=== PATIENT | male | born 1960 | race Caucasian/White ===

== ENCOUNTER 2020-06-19 08:47 | Day surgery (SDC) | payer MEDICARE, OTHER ==
[2020-06-18 10:49] VITALS: BMI 42.3
[2020-06-19] MEDS ORDERED: LACTATED RINGERS 1,000 ML IV ONE (09:25)
[2020-06-19 09:29] VITALS: TEMP 98.7
[2020-06-19] MEDS ORDERED: PROPOFOL 10 MG/ML 20 ML VIAL IV ONE (09:56)
[2020-06-19] MEDS ORDERED: fentaNYL (PF) 50 MCG/ML 2 ML AMP ONE (09:56)
--- NOTE | 2020-06-19 10:24 | P.PCN ---
Date of Procedure: 06/19/20 Description of Procedure: BRIEF HISTORY: Patient is a 59-year-old male presenting for outpatient colonoscopy for evaluation of hemorrhage of the anus and rectum. The patient reports last colonoscopy 4 years ago. He reports intermittent blood per rectum over the past few years. Family history of colon cancer in his father. He denies any abdominal pain. PROCEDURE PERFORMED: Colonoscopy with polypectomy. PREOPERATIVE DIAGNOSIS: Hemorrhage of the anus and rectum, last colonoscopy 4 years ago, family history of colon cancer in his father. ESTIMATED BLOOD LOSS: Minimal. IV sedation per Anesthesia. PROCEDURE: After informed consent was obtained, the patient, was brought into the endoscopy unit. IV sedation was administered by Anesthesia under continuous monitoring. Digital rectal examination was normal. Initially the Olympus CF-190 flexible video colonoscope was then inserted in the rectum, gradually advanced into the cecum without any difficulty. Careful examination was performed as the scope was gradually being withdrawn. Ileocecal valve and the appendiceal orifice were visualized and appeared normal. Prep was excellent. Mucosa of the cecum, ascending colon, transverse colon, descending colon, sigmoid colon, and rectum appeared normal, With a few scattered diverticula noted in the sigmoid colon. 2 diminutive polyps removed from the rectum with cold forcep polypectomy. A flat 4 mm sigmoid polyp removed with cold snare polypectomy. Retroflexion was performed in the rectum and no lesions were seen, And low-grade internal hemorrhoids noted. The patient tolerated the procedure well. IMPRESSION: Flat sigmoid polyp removed with cold snare polypectomy. 2 diminutive rectal polyps removed with cold forceps polypectomy. Mild sigmoid diverticulosis. Internal hemorrhoids. RECOMMENDATIONS: Findings of this examination were discussed with the patient and his family. Okay to resume diet. Okay to resume medications. Await pathology from polypectomy. Recommend local hemorrhoidal care for rectal bleeding including warm baths, Tucks pads, stool softeners and local topical steroid therapy with Preparation H. Recommend repeat colonoscopy in 5 years for family history of colon cancer and personal history of colon polyps.
[2020-06-19 10:55] VITALS: BP 120/67; PULSE 84; RESP 20
== END 2020-06-19 11:12 | disposition home or self-care (01) ==
LOC: ORWHC2ENDO 08:47
PROVIDERS: ATTEND Internal Medicine
DX: K62.1 Rectal polyp (principal); K63.5 Polyp of colon; K64.8 Other hemorrhoids; K57.30 Diverticulosis of large intestine without perforation or abscess without bleeding; K62.5 Hemorrhage of anus and rectum; E78.5 Hyperlipidemia, unspecified; I10 Essential (primary) hypertension; J44.9 Chronic obstructive pulmonary disease, unspecified; Z79.899 Other long term (current) drug therapy; Z80.0 Family history of malignant neoplasm of digestive organs; Z88.8 Allergy status to other drugs, medicaments and biological substances
CPT/HCPCS: 88305; 45380; 45385; J3010; J2704

== ENCOUNTER → 2020-07-08 | Outpatient (CLI) | payer OTHER ==
--- NOTE | 2020-07-08 18:42 | MR ---
EXAMINATION TYPE: MR thoracic spine wo con DATE OF EXAM: 07/08/2020 COMPARISON: HISTORY: Chronic mid back pain. CONTRAST: Performed utilizing mL intravenous gadolinium contrast. TECHNIQUE: Multiplanar, multiecho imaging on a 3.0 Sally magnet is performed through the thoracic spi ne. Spinal cord maintains normal signal through its visualized course. T5-T6: There is right paracentral endplate changes with mild anterior thecal sac flattening. Cord con tact is present with minimal right paracentral cord flattening. No spinal canal stenosis is present. T7-8: Some mild right paracentral endplate change may have some anterior thecal sac compression. No s carlos canal stenosis is evident. Vertebral body alignment is normal. Vertebral body heights are preserved. Disc heights are preserved. Disc hydration levels are preserved. No spinal canal stenosis is evident. Note is made of disc bulging T5-6 and T6-7 with mild to moderate anterior thecal sac compression IMPRESSIONS: 1. T5-6 and T7-8 right paracentral endplate changes with mild anterior thecal sac flattening. At T5-6 some minimal cord flattening may be present. No spinal canal stenosis present. 2. Note is made of disc bulging present at C5-6 and C6-7 levels.
== END | disposition home or self-care (01) ==
LOC: RADMRIMAIN 15:40
PROVIDERS: ATTEND Physician Assistant
DX: M54.6 Pain in thoracic spine (principal); M50.222 Other cervical disc displacement at C5-C6 level
CPT/HCPCS: 72146

== ENCOUNTER → 2020-09-12 | Outpatient (CLI) | payer OTHER ==
--- NOTE | 2020-09-13 03:37 | MR ---
EXAMINATION TYPE: MR lumbar spine wo con DATE OF EXAM: 09/12/2020 COMPARISON: None HISTORY: Low back pain that goes down both legs for 20 years. History of surgery in 1989,1994,2001, a nd 2003. Multiplanar multiecho imaging of the lumbar spine without contrast. Lumbar vertebra have normal alignment. There is disc space narrowing at L4-5 and L5-S1. There is prev ious laminectomy at L5 on the left side. The sacroiliac joints are intact. There is no compression fr acture. The lumbar nerve roots appear fairly normal. There is no spinal stenosis. I see no significan t neural foraminal narrowing. I see no focal bone destruction. The sacroiliac joints are intact. IMPRESSION: Previous surgery in the lower lumbar spine. No spinal stenosis or lumbar disc herniation. No fracture .
== END | disposition home or self-care (01) ==
LOC: RADMRIMAIN 19:14
PROVIDERS: ATTEND Physician Assistant
DX: M48.061 Spinal stenosis, lumbar region without neurogenic claudication (principal); Z98.890 Other specified postprocedural states
CPT/HCPCS: 72148

== ENCOUNTER → 2020-11-25 | Outpatient (CLI) | payer OTHER ==
--- NOTE | 2020-11-25 11:27 | XR ---
EXAMINATION TYPE: XR cervical spine limited DATE OF EXAM: 11/25/2020 COMPARISON: NONE HISTORY: Pain TECHNIQUE: Four views are submitted. FINDINGS: The odontoid is intact. There are no compression deformities. The prevertebral soft tissue structur es are within normal limits. Calcifications of the neck likely related to the carotid arteries. Hype rtrophic and degenerative changes C5-6 and C6-C7. IMPRESSION: 1. Hypertrophic and degenerative change C5-6 and C6-C7.
--- NOTE | 2020-11-25 14:29 | MR ---
EXAMINATION TYPE: MR cervical spine wo con DATE OF EXAM: 11/25/2020 COMPARISON: None HISTORY: 60-year-old male Neck pain and headaches. Numbness/Tingling in Right arm and hand X1 year TECHNIQUE: Multiplanar, multisequence images of the cervical spine were acquired without contrast. FINDINGS: No craniocervical junction abnormality, predental space widening, or prevertebral soft tissue swellin g. Preserved alignment of the cervical spine. Moderate degenerative disc disease at C6/C7 with associated fatty Modic type II endplate changes. Mil d disc space narrowing, disc desiccation, disc osteophyte complex. Additional levels of disc osteophy te complex or disc bulging along with disc desiccation is present throughout the cervical spine. Multilevel facet and uncovertebral joint arthropathy. There is a component of mild congenital spinal canal stenosis throughout the cervical spine. At C2-C3, no significant canal or foraminal stenosis. At C3-C4, posterior disc bulge with a left-sided facet and uncovertebral joint arthropathy. Mild left neuroforaminal narrowing. Slight accentuation in the mild spinal canal stenosis. At C4-C5, disc bulge with superimposed central disc protrusion. Uncovertebral joint and facet arthrop athy. Moderate left and mild right neuroforaminal stenosis. Mild overall spinal canal stenosis with a butment and slight flattening of the ventral cord. At C5-C6, broad-based disc osteophyte complex with superimposed central disc protrusion. Mild to mode rate overall spinal canal stenosis with flattening of the ventral cord. Hypertrophic facet and uncal vertebral joint arthropathy. Changes result in a moderate to severe right neuroforaminal stenosis and moderate left neuroforaminal stenosis. At C6-C7, broad-based disc osteophyte complex with uncovertebral joint and facet arthropathy. Mild to moderate overall final canal stenosis with abutment and flattening of the ventral cord. Severe right and moderate to severe left neuroforaminal stenosis. At C7-T1, facet arthropathy. No significant canal or foraminal stenosis. Normal course and signal intensity of the cervical spinal cord. IMPRESSION: 1. Ymis-nd-cargsgck degenerative disc disease, greatest at C6/C7. Changes are superimposed on a mild congenital spinal canal stenosis. 2. Disc osteophyte complexes at both C5-C6 and C6-C7 contribute to a mild to moderate overall spinal canal stenosis. There is abutment and slight flattening of the ventral cord at both of these levels. No myelopathic cord signal change identified. 3. Additional scattered facet and uncovertebral joint arthropathy. 4. Changes results in severe right neuroforaminal stenosis at C6-C7 and moderate to severe on the rig ht at C5-C6. 5. Changes result in moderate to severe left neuroforaminal stenosis at C6-C7 and moderate on the lef t at both C4-C5 and C5-C6.
== END | disposition home or self-care (01) ==
LOC: RADMRIMAIN 10:50
PROVIDERS: ATTEND Neurological Surgery
DX: M50.323 Other cervical disc degeneration at C6-C7 level (principal); M47.812 Spondylosis without myelopathy or radiculopathy, cervical region; M48.02 Spinal stenosis, cervical region
CPT/HCPCS: 72040; 72141

== ENCOUNTER → 2020-11-25 | Outpatient (CLI) | payer OTHER ==
--- NOTE | 2020-11-25 14:06 | US ---
EXAMINATION TYPE: US abdomen limited DATE OF EXAM: 11/25/2020 COMPARISON: NONE CLINICAL HISTORY: 60-year-old male R10.84 Generalized abdominal pain. TECHNIQUE: Multiple sonographic images of the right upper quadrant are obtained. FINDINGS: EXAM MEASUREMENTS: Liver Length: 22.7 cm Gallbladder Wall: 0.2 cm CBD: 0.4 cm Right Kidney: 10.9 x 6.4 x 5.1 cm Pancreas: Mostly obscured by bowel gas. Only small portions of the pancreatic neck and body are seen . Liver: Enlarged. Increased attenuation, decreased visualization of vessels suggestive of fatty infilt rate. There is a geographic area of hypoechogenicity along the gallbladder fossa suggesting focal fat ty sparing. Gallbladder: No stones seen Evidence for sonographic Bro's sign: No CBD: wnl Right Kidney: No hydronephrosis. IMPRESSION: 1. Hepatomegaly (22.7 cm) with moderate to severe hepatic steatosis. 2. No gallstones or ductal dilatation.
== END | disposition home or self-care (01) ==
LOC: RADUSWWP 10:08
PROVIDERS: ATTEND Family Medicine
DX: K76.0 Fatty (change of) liver, not elsewhere classified (principal); R16.0 Hepatomegaly, not elsewhere classified
CPT/HCPCS: 76705

== ENCOUNTER → 2022-05-05 | Outpatient (CLI) | payer OTHER ==
--- NOTE | 2022-05-05 10:30 | US ---
EXAMINATION TYPE: US abdomen complete DATE OF EXAM: 05/05/2022 COMPARISON: NONE CLINICAL HISTORY: R10.84 abdominal pain.Pain TECHNIQUE: Multiple sonographic images of the abdomen are obtained. FINDINGS: EXAM MEASUREMENTS: Liver Length: 19.1 cm Gallbladder Wall: .3 cm CBD: .6 cm Spleen: 11.6 cm Right Kidney: 10.9 x 4.4 x 4.7 cm Left Kidney: 10.8 x 5.2 x 4.8 cm EDUCATION SITE MANAGER NOTES: Pancreas: Obscured by bowel gas Liver: Hypoechoic area 2.4 x 1.1 x 2.1 cm may be some focal fatty sparing Gallbladder: Gallbladder wall measures 0.32 cm. Normal less than 0.3 cm. No pericholecystic fluid is evident. No gallstones are identified. Wall thickening may be related to incomplete distention. Chery elate for cholecystitis. Evidence for sonographic Bro's sign: No CBD: wnl Spleen: wnl Right Kidney: wnl Left Kidney: wnl Upper IVC: wnl Abd Aorta: wnl IMPRESSION: 1. Hepatomegaly. 2. Gallbladder wall is mildly thickened. Correlate for cholecystitis. This may be artifact from incom plete distention.
== END | disposition home or self-care (01) ==
LOC: RADUSWWP 09:08
DX: K82.8 Other specified diseases of gallbladder (principal); R16.0 Hepatomegaly, not elsewhere classified; R10.84 Generalized abdominal pain
CPT/HCPCS: 76700

== ENCOUNTER → 2022-06-15 | Outpatient (CLI) | payer OTHER ==
--- NOTE | 2022-06-16 08:31 | NM ---
Nuclear medicine hepatobiliary scan. HISTORY: Pain. DOSAGE: The patient received 8 0z Ensure plus and 4.86 mCi of Technetium 99m Choletec. FINDINGS: There is normal hepatic extraction. The gallbladder is seen by 20 minutes. There is bilia ry to bowel clearance by 15 minutes. Ejection fraction is 80%. IMPRESSION: 1. No evidence of cholecystitis. 2. Ejection fraction 88%. Occasionally may be associated with a hyperdynamic gallbladder, correlate c linically.
== END | disposition home or self-care (01) ==
LOC: RADNMMAIN 12:41
PROVIDERS: ATTEND Surgery
DX: K81.9 Cholecystitis, unspecified (principal)
CPT/HCPCS: 78227; A9537; J2805

== ENCOUNTER 2022-07-09 06:31 | Day surgery (SDC) | payer OTHER ==
[2022-07-08 11:24] VITALS: BMI 39.1
[~2022-07-09 06:31] MED LIST: ACETAMINOPHEN TAB 500 MG TAB PO PRN; DEXAMETHASONE SOD PHOSPHATE 4 MG/ML 1 ML VIAL IV ONE; HEPARIN SODIUM,PORCINE/PF 5,000 UNIT/0.5 ML SYRINGE SQ PRN; ONDANSETRON 4 MG/2 ML VIAL IVP ONE
[2022-07-09 07:10] VITALS: RESP 16
[2022-07-09 07:34] LABS: Basophils % (A) 1 %; Eosinophils # (A) 0.2 k/uL (0-0.7); Eosinophils % (A) 3 %; HCT 36.7 % (39.0-53.0); HGB 12.1 gm/dL (13.0-17.5); Lymphocytes # (A) 1.7 k/uL (1.0-4.8); Lymphocytes % (A) 30 %; MCH 29.4 pg (25.0-35.0); MCHC 32.9 g/dL (31.0-37.0); MCV 89.3 fL (80.0-100.0); Mean Platelet Volume 7.4; Monocytes # (A) 0.4 k/uL (0-1.0); Monocytes % (A) 7 %; Neutrophils # (A) 3.2 k/uL (1.3-7.7); Neutrophils % (A) 57 %; Platelet Count 207 k/uL (150-450); RBC 4.11 m/uL (4.30-5.90); RDW 13.8 % (11.5-15.5); WBC 5.7 k/uL (3.8-10.6)
[2022-07-09] MEDS: LACTATED RINGERS 1,000 ML IV SCH ×2 (07:36→08:26)
[2022-07-09 07:41] LABS: Potassium 3.9 mmol/L (3.5-5.1)
[2022-07-09] MEDS ORDERED: GLYCOPYRROLATE 0.2 MG/ML 2 ML VIAL ONE (08:22)
[2022-07-09] MEDS ORDERED: ROCURONIUM 10 MG/ML (5 ML VIAL) IV ONE (08:22)
[2022-07-09] MEDS ORDERED: LIDOCAINE 2% INJ 20 MG/ML (2 ML VIAL) ONE (08:22)
[2022-07-09] MEDS ORDERED: fentaNYL (PF) 50 MCG/ML 2 ML AMP ONE (08:22)
[2022-07-09] MEDS ORDERED: PROPOFOL 10 MG/ML 20 ML VIAL IV ONE (08:22)
[2022-07-09] MEDS ORDERED: MIDAZOLAM 2 MG/2 ML VIAL ONE (08:22)
[2022-07-09] MEDS ORDERED: SUCCINYLCHOLINE CHLORIDE 200 MG/10 ML VIAL IV ONE (08:22)
[2022-07-09] MEDS ORDERED: NEOSTIGMINE 1 MG/ML 10 ML VIAL ONE (08:22)
[2022-07-09] MEDS ORDERED: BUPIVACAINE (PF) 0.25% 30 ML VIAL SQ ONE ×2 (08:25→08:41)
--- NOTE | 2022-07-09 09:02 | P.OP ---
Date of Procedure: 07/09/22 Preoperative Diagnosis: Cholecystitis Postoperative Diagnosis: Cholecystitis Procedure(s) Performed: Laparoscopic cholecystectomy Anesthesia: ARTEMIO Surgeon: John Harris Estimated Blood Loss (ml): 5 Pathology: other (Gallbladder) Condition: stable Disposition: PACU Description of Procedure: The patient was placed on the operating table. The patient received a general endotracheal tube anesthesia. The patients abdomen was prepped and draped in the usual sterile fashion. Through an infraumbilical stab incision, the fascia of the anterior abdominal wall was grasped with a pair of Kochers and then the Veress needle was placed in the peritoneal cavity. Position of the Veress needle was confirmed with positive drop test. The abdomen was then insufflated. After adequate insufflation, the 10 mm trocar was placed in the peritoneal cavity. Following this the laparoscope was placed in the peritoneal cavity. The patient was placed in the head-up, right side up position and then a 5 mm trocar was placed in the right lateral and right subcostal position under direct visualization. A 8 mm trocar was placed in the epigastric position. The gallbladder was grasped in the fundus and infundibulum. Traction on the gallbladder was placed in the lateral and the cephalad positions. The triangle of Calot was visualized.. The cystic duct was bluntly dissected until the union of the cystic duct and common bile duct was seen. A critical view of safety was achieved. The cystic duct was then divided and sealed with the Harmonic scissors. A PDS Endoloop was then placed throughout the cystic duct stump. The cystic artery divided and sealed with the Harmonic scissors. The gallbladder was then removed from the liver bed using Harmonic scissors. The gallbladder was then extracted through the epigastric port site. Operative field was checked for any bleeding spots and Harmonic scissors was used to coagulate the liver bed. The abdomen was irrigated. The trocars were removed. The skin was closed using interrupted 3-0 Vicryl suture. Dermabond dressing were applied. The patient tolerated the procedure well.
[2022-07-09 09:24] VITALS: TEMP 97.2
[2022-07-09] MEDS: HYDROmorphone 0.5 MG/0.5 ML SYRINGE IVP PRN ×4 (09:32→10:13)
[2022-07-09 11:07] VITALS: BP 145/75; PULSE 69
== END 2022-07-09 11:25 | disposition home or self-care (01) ==
LOC: OR 06:31
PROVIDERS: ATTEND Surgery
DX: K81.1 Chronic cholecystitis (principal); I10 Essential (primary) hypertension; E78.5 Hyperlipidemia, unspecified; J44.9 Chronic obstructive pulmonary disease, unspecified; G47.33 Obstructive sleep apnea (adult) (pediatric); Z99.89 Dependence on other enabling machines and devices; F41.9 Anxiety disorder, unspecified; F32.A Depression, unspecified; M19.90 Unspecified osteoarthritis, unspecified site; K21.9 Gastro-esophageal reflux disease without esophagitis; Z88.8 Allergy status to other drugs, medicaments and biological substances; Z91.010 Allergy to peanuts; Z88.5 Allergy status to narcotic agent; Z79.899 Other long term (current) drug therapy
CPT/HCPCS: 47562; 88304; 80051; 85025; J2250; J0330; J1100; J2710; J0690; J2405; J3010; J2704; J1170; J1644; J2001

== ENCOUNTER 2023-05-18 19:36 | Outpatient (CLI) | payer OTHER ==
--- NOTE | 2023-05-24 16:16 | P.PCN ---
Date of Procedure: 05/18/23 Operative Findings: Polysomnography report Date of service is 05/18/2023 Pertinent history This is a 63-year-old male patient suspected of obstructive sleep apnea and the patient presented to the sleep center to undergo a screening polysomnography. The patient has a known history of obstructive sleep apnea. He has been diagnosed many years back. He was given a CPAP machine which he used for many years and ultimately his machine quit. He is currently not utilizing any form of treatment. His [place] score is at 17. He is requesting a reevaluation for that reason screening polysomnography was done. His comorbid conditions include COPD, hypertension, hyperlipidemia, history of depression and PTSD Pertinent physical findings The patient's weight is 250 pounds with a height of 5 feet and 7 inches and a body mass index of 39.2 Technical description The patient was studied using a standard complex polysomnography protocol that included recording of the 2 EKG, Central, occipital and frontal EEG, right and left outer canthus EOG, submental EMG, right and left anterior tibialis EMG, respiratory airflow by thermocouple and or pressure/flow transducer, respiratory efforts by abdominal and thoracic PVDF belts, oxygen saturation by cable oximetry. Position by observation synchronized the PSG. . Equipment used: [employer]. Sleep architecture The total recording duration was 396.5 minutes. The total sleep time was 311 minutes. The wake after sleep onset time was 56 minutes. The sleep efficiency was calculated to be at 78.4%. The latency to sleep onset was 20 minutes. The latest REM sleep was 159 minutes. Sleep architecture was catheterized by 33.8% stage I, 58.7% stage II, 0% stage III, and 7.6% REM sleep. The total arousal index was 50.4 Respiratory analysis The patient had a total of 343 obstructive events of which 0 obstructive apneas, 0 were mixed apneas and 343 were obstructive hypopneas. No central events were noted and the overall apnea-hypopnea index was 64.1 Oxygenation analysis The baseline pulse ox while awake was 91%, lowest pulse ox during sleep was 65% and the patient spent approximately 1 hours of 42 minutes of sleep time below pulse ox of 89%. Lowest recorded pulse ox was 65% with occurred during REM sleep Sleep continuity summary This sleep was fragmented with excessive arousals. The respiratory arousal index was 25.1. Total number of arousals was 261 with a arousal index of 50.4 Periodic limb movements None Cardiac summary Average heart rate was 71 with a minimum heart rate of 54 and a maximum heart rate of 96 Assessment Severe symptomatic obstructive sleep apnea with an AHI of 64.1. Nocturnal oxygen desaturation secondary to obstructive sleep apnea. Hypertension Hyperlipidemia PTSD Depression Plan Proceed with a CPAP titration.
== END 2023-05-19 05:22 | disposition home or self-care (01) ==
LOC: 3 N SLEEP 19:36
PROVIDERS: ATTEND Internal Medicine Critical Care Medicine
DX: G47.33 Obstructive sleep apnea (adult) (pediatric) (principal); G47.36 Sleep related hypoventilation in conditions classified elsewhere; I10 Essential (primary) hypertension; E78.5 Hyperlipidemia, unspecified; F43.10 Post-traumatic stress disorder, unspecified; F32.A Depression, unspecified; Z88.8 Allergy status to other drugs, medicaments and biological substances; Z91.010 Allergy to peanuts; Z88.5 Allergy status to narcotic agent; Z79.899 Other long term (current) drug therapy
CPT/HCPCS: 95810

== ENCOUNTER 2023-07-11 19:17 | Outpatient (CLI) | payer OTHER ==
--- NOTE | 2023-07-12 13:47 | P.PCN ---
Date of Procedure: 07/12/23 Operative Findings: CPAP titration report Date of service is 07/11/2023 History This is a 63-year-old male patient diagnosed having severe symptomatic CHUY with an AHI of 64. The patient also encountered significant oxygen desaturations. The patient is coming in for a CPAP titration study Pertinent physical findings The patient has a height of 5 feet and 7 inches, weight is 250 pounds and a body mass index is 39.2 Technical description The patient was studied using a standard complex polysomnography protocol that included recording of the 2 EKG, Central, occipital and frontal EEG, right and left outer canthus EOG, submental EMG, right and left anterior tibialis EMG, respiratory airflow by thermocouple and or pressure/flow transducer, respiratory efforts by abdominal and thoracic PVDF belts, oxygen saturation by cable oximetry. Position by observation synchronized the PSG. Stepwise CPAP/BiPAP titration was done to eliminate obstructive respiratory events. Equipment used: [employer]. Sleep characteristics The total recording duration was around 86.0 minutes. The total sleep time was 317.0 minutes. The sleep efficiency was calculated to be at 82.1%. The latency to sleep onset was 16 minutes. The latency to REM sleep was 49.5 minutes. The sleep architecture was characterized by 1.1% stage I, 65.8% stage II, 6.9% stage III, 26.2% REM sleep. The total arousal index was 9.8. The wake after sleep onset time was 52.5 minutes Results CPAP titration was started initially at a pressure of 10 cm of water and pressure was gradually increased by increments of 1 cm to reach maximum CPAP pressure of 18 cm of water. CPAP therapy was ineffective as the patient continued to have oxygen saturations and obstructive hypopneas. At that point, the patient was switched to a BiPAP and a BiPAP titration was continued and the maximum pressure achieved was 24 over 20 cm of water and oxygen was also added at 2 L to maintain saturation above 90%. I carefully reviewed the titration taken, the patient sleep stage and body position. Clearly, BiPAP therapy along with oxygen supplementation was more effective in eliminating obstructive respiratory events maintaining a saturation above 90%. Based on all this, I am going to start the patient on VPAP auto and the EPAP minimum of 16 and a maximum pressure of 24 and a pressure support of 4. Artery we were also used at 2 L Sleep continuity summary The patient had a total of 32 arousals with an index of 9.8. Respiratory russ usal index was 2.1 Periodic limb movement The patient had a total of 182 periodic limb movement activity with an index of 34.4. There were 3 periodic limb movement activity with arousals with an index of 0.6 Cardiac summary Average heart rate was 83 with a minimum heart rate of 76 and a maximum heart rate of 90 Assessment Severe symptomatic CHUY with an AHI of 64. The patient had CPAP/BiPAP titration. CPAP was ineffective eliminating respiratory events and the patient was switched to BiPAP. Obesity with a BMI of 39.2 Chronic hypersomnia Hypertension Hyperlipidemia Depression/PTSD Plan Encourage weight loss Optimize sleep hygiene measures Initiate BiPAP therapy and the patient will be offered a VPAP auto with a minimum pressure of 16 and a pressure max of 24 and a pressure support of 4. Oxygen will be also added at 2 L to maintain saturation above 90% and the patient is going to be offered an AirFit F30 medium size fullface mask. The patient was seen back in the office in 30 to 90 days for a compliancy check. Will make further recommendations accordingly.
== END 2023-07-12 04:45 | disposition home or self-care (01) ==
LOC: 3 N SLEEP 19:17
PROVIDERS: ATTEND Internal Medicine Critical Care Medicine
DX: G47.33 Obstructive sleep apnea (adult) (pediatric) (principal); E66.9 Obesity, unspecified; I10 Essential (primary) hypertension; G47.10 Hypersomnia, unspecified; E78.5 Hyperlipidemia, unspecified; F32.A Depression, unspecified; F43.10 Post-traumatic stress disorder, unspecified; Z68.39 Body mass index [BMI] 39.0-39.9, adult; Z91.010 Allergy to peanuts; Z88.5 Allergy status to narcotic agent; Z88.8 Allergy status to other drugs, medicaments and biological substances; Z79.899 Other long term (current) drug therapy
CPT/HCPCS: 95811

== ENCOUNTER 2023-07-17 20:58 | Observation (INO) | payer OTHER, MEDICARE ==
[2023-07-17 21:40] LABS: Basophils # (A) 0.1 k/uL (0-0.2); Basophils % (A) 1 %; Eosinophils # (A) 0.2 k/uL (0-0.7); Eosinophils % (A) 3 %; HCT 32.3 % (39.0-53.0); HGB 10.1 gm/dL (13.0-17.5); Hypochromasia Marked; Lymphocytes # (A) 1.8 k/uL (1.0-4.8); Lymphocytes % (A) 24 %; MCH 24.4 pg (25.0-35.0); MCHC 31.1 g/dL (31.0-37.0); MCV 78.6 fL (80.0-100.0); Mean Platelet Volume 7.8; Monocytes # (A) 0.5 k/uL (0-1.0); Monocytes % (A) 7 %; Neutrophils # (A) 4.5 k/uL (1.3-7.7); Neutrophils % (A) 62 %; Platelet Count 281 k/uL (150-450); Poikilocytosis Slight; RBC 4.12 m/uL (4.30-5.90); RDW 14.5 % (11.5-15.5); WBC 7.3 k/uL (3.8-10.6)
[2023-07-17 21:50] LABS: ALT 28 U/L (4-49); AST 40 U/L (17-59); African American GFR (CKD) >90 (>60 ml/min/1.73 sqM); Albumin 4.3 g/dL (3.5-5.0); Alkaline Phosphatase 131 U/L (38-126); Anion Gap 7 mmol/L; Blood Urea Nitrogen 17 mg/dL (9-20); Calcium 9.2 mg/dL (8.4-10.2); Carbon Dioxide 31 mmol/L (22-30); Chloride 101 mmol/L (98-107); Glucose 100 mg/dL (74-99); Lipase 97 U/L (23-300); Magnesium 1.9 mg/dL (1.6-2.3); Non-African American GFR(CKD) >90 (>60 ml/min/1.73 sqM); Potassium 3.9 mmol/L (3.5-5.1); Sodium 139 mmol/L (137-145); Total Bilirubin 0.5 mg/dL (0.2-1.3); Total Protein 7.2 g/dL (6.3-8.2)
[2023-07-17 21:52] LABS: Partial Thromboplastin Time 22.8 sec (22.0-30.0); Prothrombin Time 10.7 sec (10.0-12.5)
--- NOTE | 2023-07-17 21:57 | ED ---
Chest Pain HPI - General Chief Complaint: Chest Pain Stated Complaint: Chest Pain, Hypertension Time Seen by Provider: 07/17/23 21:08 Source: patient Mode of arrival: ambulatory Limitations: no limitations - History of Present Illness Initial Comments: 62-year-old male with past medical history of COPD, congestive heart failure who presents emergency department reporting chest pain. States that it started while he was driving in the car. The pain is located over the right side of the chest and is a stabbing sensation. He denies any provocative factors. Pain is mostly alleviated however he did not take anything for the pain. Patient admits to associated shortness of breath. He does have lower extremity edema however this is chronic for him. states that he cannot ambulate for any sort of distance without becoming extremely short of breath. Patient does not wear oxygen. No fevers. Patient recently saw his hereditary cancer program coordinator Dr. Ivy. He was supposed to start aspirin and nitro however the patient lost his prescriptions. He is scheduled to have a stress test and an echo of his heart on the . No other alleviating, precipitating or modifying factors - Related Data Home Medications Medication Instructions Recorded Confirmed Multivit-Min/Folic/Vit K/Lycop 1 each PO DAILY 06/18/20 07/09/22 [Men's Multivitamin Tablet] busPIRone HCl [Buspar] 10 mg PO BID 06/18/20 07/09/22 rOPINIRole HCL [Requip] 0.5 mg PO HS 06/18/20 07/09/22 Baclofen 10 mg PO TID 06/19/20 07/09/22 Gabapentin 600 mg PO TID 06/19/20 07/09/22 Acetaminophen Tab [Tylenol Tab] 500 - 1,000 mg PO Q4-6H PRN 07/08/22 07/09/22 Atorvastatin Calcium [Lipitor] 80 mg PO HS 07/08/22 07/09/22 Naproxen Sodium [Aleve] 220 mg PO DAILY 07/08/22 07/09/22 Omeprazole 20 mg PO W/SUPPER 07/08/22 07/09/22 Sennosides [Senokot] 8.6 mg PO DAILY 07/08/22 07/09/22 Sertraline HCl [Zoloft] 75 mg PO BID 07/08/22 07/09/22 carvediloL 12.5 mg PO BID 07/08/22 07/09/22 oxyCODONE HCL [oxyCODONE HCL (IR)] 10 mg PO TID 07/08/22 07/09/22 Previous Rx's Medication Instructions Recorded Acetaminophen Tab [Tylenol] 650 mg PO Q6H #30 tab 07/09/22 Docusate [Colace] 100 mg PO BID #20 capsule 07/09/22 Ibuprofen [Motrin] 600 mg PO Q6HR PRN #40 tab 07/09/22 oxyCODONE HCL [OxyIR] 5 mg PO Q6H PRN 3 Days #10 tab 07/09/22 Allergies Allergy/AdvReac Type Severity Reaction Status Date / Time bupropion [From Wellbutrin] Allergy Anaphylaxis Verified 07/09/22 06:58 peanut Allergy Anaphylaxis Verified 07/09/22 06:58 IV Morphine Allergy "Caused Uncoded 07/09/22 06:58 Ileus" Review of Systems ROS Statement: Those systems with pertinent positive or pertinent negative responses have been documented in the HPI. ROS Other: All systems not noted in ROS Statement are negative. Past Medical History Past Medical History: COPD, GERD/Reflux, Hyperlipidemia, Hypertension, Osteoarthritis (OA), Sleep Apnea/CPAP/BIPAP Additional Past Medical History / Comment(s): Varicose veins and circulation issues. CPAP use. History of Any Multi-Drug Resistant Organisms: None Reported Past Surgical History: Back Surgery, Orthopedic Surgery Additional Past Surgical History / Comment(s): FUSION L5-S1, COLONOSCOPY, SPINAL CORD IMPLANT-LATER REMOVED, BILATERAL GREAT TOE SURGERY,. MICRODISCECTOMY, peripheral spinal cord stimulator placed and later removed. Past Anesthesia/Blood Transfusion Reactions: No Reported Reaction Past Psychological History: Anxiety, Depression Smoking Status: Former smoker Past Alcohol Use History: Occasional Past Drug Use History: Marijuana - Past Family History Father Family Medical History: Cancer Additional Family Medical History / Comment(s): COLON CANCER. Sister(s) Family Medical History: Cancer Additional Family Medical History / Comment(s): BREAST CANCER. General Exam Limitations: no limitations General appearance: alert, in no apparent distress Head exam: Present: atraumatic, normocephalic, normal inspection Eye exam: Present: normal appearance, PERRL, EOMI. Absent: scleral icterus, conjunctival injection, periorbital swelling ENT exam: Present: normal exam, mucous membranes moist Neck exam: Present: normal inspection. Absent: tenderness, meningismus, lym phadenopathy Respiratory exam: Present: normal lung sounds bilaterally. Absent: respiratory distress, wheezes, rales, rhonchi, stridor Cardiovascular Exam: Present: regular rate, normal rhythm, normal heart sounds. Absent: systolic murmur, diastolic murmur, rubs, gallop, clicks GI/Abdominal exam: Present: soft, normal bowel sounds. Absent: distended, tenderness, guarding, rebound, rigid Extremities exam: Present: normal inspection, full ROM, normal capillary refill. Absent: tenderness, pedal edema, joint swelling, calf tenderness Back exam: Present: normal inspection Neurological exam: Present: alert, oriented X3, CN II-XII intact Psychiatric exam: Present: normal affect, normal mood Skin exam: Present: warm, dry, intact, normal color. Absent: rash Course Vital Signs 07/17/23 21:03 Temperature 97.8 F Pulse Rate 89 Respiratory 16 Rate Blood Pressure 201/89 O2 Sat by Pulse 96 Oximetry Chest Pain MDM - MDM Was pt. sent in by a medical professional or institution (, PA, [facility], urgent care, hospital, or long-term...) When possible be specific @ -[No] Did you speak to anyone other than the patient for history (EMS, parent, family, police, friend...)? What history was obtained from this source @ -[No] Did you review nursing and triage notes (agree or disagree)? Why? @ -[I reviewed and agree with nursing and triage notes] Were old charts reviewed (outside hosp., previous admission, EMS record, old EKG, old radiological studies, urgent care reports/EKG's, long-term records)? Report findings @ -[No old charts were reviewed] Differential Diagnosis (chest pain, altered mental status, abdominal pain women, abdominal pain men, vaginal bleeding, weakness, fever, dyspnea, syncope, headache, dizziness, GI bleed, back pain, seizure, CVA, palpatations, mental health, musculoskeletal)? @ -[not applicable] EKG interpreted by me (3pts min.). @ -Yes and demonstrates sinus rhythm with a rate of 83. LA interval 172. QRS 105. QTc of 404. No acute ST segment elevations or depressions X-rays interpreted by me (1pt min.). @ -[None done] CT interpreted by me (1pt min.). @ -[None done] U/S interpreted by me (1pt. min.). @ -[None done] What testing was considered but not performed or refused? (CT, X-rays, U/S, labs)? Why? @ -[None] What meds were considered but not given or refused? Why? @ -[None] Did you discuss the management of the patient with other professionals (professionals i.e. , PA, [facility], lab, RT, psych nurse, high school social science teacher, clerical and administrative workers, teacher, air defence officer, mattress spring encaser)? Give summary @ -[No] Was smoking cessation discussed for >3mins.? @ -[No] Was critical care preformed (if so, how long)? @ -[No] Were there social determinants of health that impacted care today? How? (Homelessness, low income, unemployed, alcoholism, drug addiction, transportation, low edu. Level, literacy, decrease access to med. care, shelter, rehab)? @ -[No] Was there de-escalation of care discussed even if they declined (Discuss DNR or withdrawal of care, Hospice)? DNR status @ -[No] What co-morbidities impacted this encounter? (DM, HTN, Smoking, COPD, CAD, Cancer, CVA, ARF, Chemo, Hep., AIDS, mental health diagnosis, sleep apnea, morbid obesity)? @ -[None] Was patient admitted / discharged? Hospital course, mention meds given and route , prescriptions, significant lab abnormalities, going to OR and other pertinent info. @ -[hospital course] Undiagnosed new problem with uncertain prognosis? @ -[No] Drug Therapy requiring intensive monitoring for toxicity (Heparin, Nitro, Insulin, Cardizem)? @ -[No] Were any procedures done? @ -[No] Diagnosis/symptom? @ -[default] Acute, or Chronic, or Acute on Chronic? @ -[default] Uncomplicated (without systemic symptoms) or Complicated (systemic symptoms)? @ -[default] Side effects of treatment? @ -[No] Exacerbation, Progression, or Severe Exacerbation? @ -[No] Poses a threat to life or bodily function? How? (Chest pain, [place], [place], pneumonia, PE, COPD, DKA, ARF, appy, cholecystitis, CVA, Diverticulitis, Homicidal, Suicidal, threat to staff... and all critical care pts) @ -[No] Disposition Clinical Impression: Chest pain Disposition: ADMITTED IP TO THIS HOSP Condition: Stable Is patient prescribed a controlled substance at d/c from ED?: No Referrals: [facility],Clinic [Primary Care Provider] - 1-2 days Time of Disposition: 22:20 Decision to Admit Reason: Admit from EC Decision Date: 07/17/23 Decision Time: 22:20
[2023-07-17 21:58] LABS: NT-Pro-B-Type Natriuretic Pept 50 pg/mL
--- NOTE | 2023-07-17 22:02 | XR ---
EXAMINATION TYPE: XR chest 2V DATE OF EXAM: 07/17/2023 COMPARISON: Chest x-ray February 16, 2023 HISTORY: Chest pain. TECHNIQUE: Frontal and lateral views of the chest are obtained. FINDINGS: There is no focal air space opacity, pleural effusion, or pneumothorax seen. Mild cardiome karson is redemonstrated. The osseous structures are intact. IMPRESSION: Mild cardiomegaly without acute pulmonary process. No significant change from most recen t prior.
[2023-07-17] MEDS ORDERED: NALOXONE 0.4 MG/ML 1 ML VIAL IV PRN (22:20)
[2023-07-17] MEDS: ASPIRIN 81 MG PO STA (22:34)
[2023-07-18] MEDS: carvediloL 12.5 MG TAB PO SCH (01:17)
[2023-07-18] MEDS: BACLOFEN 10 MG TAB PO SCH (01:17)
[2023-07-18] MEDS: busPIRone HCl 10 MG TAB PO SCH (01:17)
[2023-07-18] MEDS: ATORVASTATIN 80 MG TAB PO SCH (01:17)
[2023-07-18] MEDS: GABAPENTIN 300 MG CAP PO SCH (01:17)
[2023-07-18] MEDS: ACETAMINOPHEN TAB 325 MG TAB PO SCH (01:19)
--- NOTE | 2023-07-18 01:19 | P.HPIM ---
History of Present Illness H&P Date: 07/17/23 Chief Complaint: Chest pain 62-year-old male with hypertension hyperlipidemia COPD Patient coming in complaining of sudden onset chest pain while in the car ride described it as a spike of pain shooting straight throughout his chest along with central chest pressure and dull ache happened while he was in a car ride without any associated trouble breathing dizziness or lightheadedness denies any palpitations or profuse sweating he went home first found his blood pressure was elevated with systolic in the 190s got even more concerned and decided to come to the hospital for evaluation He reports that over the past few months he has been having exertional dyspnea where he would get very winded if he walks more than 50 yards resulting in chest discomfort and shortness of breath that resolves upon resting for few minutes Patient reports a left heart cath was done 4 years ago and reported to be normal He denies any tobacco smoking or illicit drugs he does admit to daily alcohol of couple beers Patient denies any fevers chills nausea vomiting abdominal pain changes in bowel or urinary habits He did notice some increased leg swelling recently, he does not sleep on his back flat due to back pain review of systems Pertinent positives as noted in HPI. All other systems were reviewed and are negative on exam Constitutional: No acute distress, conversant, pleasant Eyes: Anicteric sclerae, moist conjunctiva, Pupils equal round reactive to light ENMT: NC/AT Oropharynx clear, no erythema, or exudates Neck: Supple, no masses, or JVD No carotid bruits No thyromegaly Lungs: Clear to auscultation Clear to percussion Normal respiratory effort, no accessory muscle use Cardiovascular: Heart regular in rate and rhythm, No murmurs, gallops, or rubs +2 bilateral peripheral leg edema Abdominal: Soft Nontender, no guarding, rebound or rigidity Abdomen moving with respiration Normoactive bowel sounds Extremities: No digital cyanosis No clubbing Pedal pulses intact and symmetrical Radial pulses intact and symmetrical No calf tenderness Psychiatric: Alert and oriented to person, place and time Appropriate affect fair judgement Neuro Muscles Strength 5/5 in all 4 extremities Sensation to light touch grossly present throughout Cranial nerves II-XII grossly intact Past Medical History Past Medical History: COPD, GERD/Reflux, Hyperlipidemia, Hypertension, Osteoarthritis (OA), Sleep Apnea/CPAP/BIPAP Additional Past Medical History / Comment(s): Varicose veins and circulation issues. CPAP use. History of Any Multi-Drug Resistant Organisms: None Reported Past Surgical History: Back Surgery, Orthopedic Surgery Additional Past Surgical History / Comment(s): FUSION L5-S1, COLONOSCOPY, SPINAL CORD IMPLANT-LATER REMOVED, BILATERAL GREAT TOE SURGERY,. MICRODISCECTOMY, peripheral spinal cord stimulator placed and later removed. Past Anesthesia/Blood Transfusion Reactions: No Reported Reaction Past Psychological History: Anxiety, Depression Smoking Status: Former smoker Past Alcohol Use History: Occasional Past Drug Use History: Marijuana - Past Family History Father Family Medical History: Cancer Additional Family Medical History / Comment(s): COLON CANCER. Sister(s) Family Medical History: Cancer Additional Family Medical History / Comment(s): BREAST CANCER. Medications and Allergies Home Medications Medication Instructions Recorded Confirmed Type Multivit-Min/Folic/Vit K/Lycop 1 each PO DAILY 06/18/20 07/09/22 History [Men's Multivitamin Tablet] busPIRone HCl [Buspar] 10 mg PO BID 06/18/20 07/09/22 History rOPINIRole HCL [Requip] 0.5 mg PO HS 06/18/20 07/09/22 History Baclofen 10 mg PO TID 06/19/20 07/09/22 History Gabapentin 600 mg PO TID 06/19/20 07/09/22 History Acetaminophen Tab [Tylenol Tab] 500 - 1,000 mg PO Q4-6H PRN 07/08/22 07/09/22 History Atorvastatin Calcium [Lipitor] 80 mg PO HS 07/08/22 07/09/22 History Naproxen Sodium [Aleve] 220 mg PO DAILY 07/08/22 07/09/22 History Omeprazole 20 mg PO W/SUPPER 07/08/22 07/09/22 History Sennosides [Senokot] 8.6 mg PO DAILY 07/08/22 07/09/22 History Sertraline HCl [Zoloft] 75 mg PO BID 07/08/22 07/09/22 History carvediloL 12.5 mg PO BID 07/08/22 07/09/22 History oxyCODONE HCL [oxyCODONE HCL (IR)] 10 mg PO TID 07/08/22 07/09/22 History Acetaminophen Tab [Tylenol] 650 mg PO Q6H #30 tab 07/09/22 Rx Docusate [Colace] 100 mg PO BID #20 capsule 07/09/22 Rx Ibuprofen [Motrin] 600 mg PO Q6HR PRN #40 tab 07/09/22 Rx oxyCODONE HCL [OxyIR] 5 mg PO Q6H PRN 3 Days #10 tab 07/09/22 Rx Allergies Allergy/AdvReac Type Severity Reaction Status Date / Time bupropion [From Wellbutrin] Allergy Anaphylaxis Verified 07/09/22 06:58 peanut Allergy Anaphylaxis Verified 07/09/22 06:58 IV Morphine Allergy "Caused Uncoded 07/09/22 06:58 Ileus" Physical Exam Vitals: Vital Signs Temp Pulse Resp BP Pulse Ox 07/17/23 22:42 98.1 F 80 18 157/72 95 07/17/23 22:36 86 18 158/72 95 07/17/23 21:03 97.8 F 89 16 201/89 96 Intake and Output 07/17/23 07/17/23 07/18/23 14:59 22:59 06:59 Other: Weight 120.202 kg Results CBC & Chem 7: 07/17/23 21:28 07/17/23 21:28 Labs: Abnormal Lab Results - Last 24 Hours (Table) 07/17/23 07/17/23 Range/Units 21:28 21:28 RBC 4.12 L (4.30-5.90) m/uL Hgb 10.1 L (13.0-17.5) gm/dL Hct 32.3 L (39.0-53.0) % MCV 78.6 L (80.0-100.0) fL MCH 24.4 L (25.0-35.0) pg Carbon Dioxide 31 H (22-30) mmol/L Glucose 100 H (74-99) mg/dL Alkaline Phosphatase 131 H (38-126) U/L Assessment and Plan Assessment: 63-year-old male with hypertension hyperlipidemia coming in with sudden onset chest pain he also reports couple month history of exertional chest pains and shortness of breath I discussed case with ED doctor and accepted the admission for atypical chest pain rule out ACS Atypical chest pain rule out ACS Troponins negative continue to trend Cardiac monitoring Monitor vital signs Cardiology consult Continue with aspirin 81 mg daily Continue with statin atorvastatin 40 mg nightly EKG no acute ST changes Chest x-ray no acute process Hypertension poorly controlled Continue with carvedilol 12.5 mg p.o. twice daily Start patient on amlodipine 5 mg p.o. daily Microcytic anemia Hemoglobin 10 MCV 78 Patient denies any GI bleeding Patient counseled regarding the importance of age-appropriate cancer screening Blood work overall unremarkable sodium 139 potassium 3.9 BUN 17 creatinine 0.8 D-dimer negative White count 7.3 No code DVT prophylaxis heparin subcu 3 times daily GI prophylaxis Protonix 40 mg p.o. daily
[2023-07-18 03:34] LABS: Basophils % (A) 1 %; Eosinophils # (A) 0.2 k/uL (0-0.7); Eosinophils % (A) 2 %; HCT 28.3 % (39.0-53.0); HGB 8.7 gm/dL (13.0-17.5); Hypochromasia Marked; Lymphocytes # (A) 1.7 k/uL (1.0-4.8); Lymphocytes % (A) 29 %; MCH 24.1 pg (25.0-35.0); MCHC 30.6 g/dL (31.0-37.0); MCV 78.9 fL (80.0-100.0); Mean Platelet Volume 8.2; Monocytes # (A) 0.4 k/uL (0-1.0); Monocytes % (A) 6 %; Neutrophils # (A) 3.6 k/uL (1.3-7.7); Neutrophils % (A) 60 %; Platelet Count 253 k/uL (150-450); Poikilocytosis Slight; RBC 3.59 m/uL (4.30-5.90); RDW 14.3 % (11.5-15.5); WBC 6.1 k/uL (3.8-10.6)
[2023-07-18 03:35] LABS: African American GFR (CKD) >90 (>60 ml/min/1.73 sqM); Anion Gap 4 mmol/L; Blood Urea Nitrogen 16 mg/dL (9-20); Calcium 8.9 mg/dL (8.4-10.2); Carbon Dioxide 31 mmol/L (22-30); Chloride 102 mmol/L (98-107); Glucose 107 mg/dL (74-99); Non-African American GFR(CKD) >90 (>60 ml/min/1.73 sqM); Potassium 3.5 mmol/L (3.5-5.1); Sodium 137 mmol/L (137-145)
[2023-07-18] MEDS: ASPIRIN 81 MG PO SCH (08:19)
[2023-07-18] MEDS: HEPARIN SODIUM,PORCINE 5,000 UNIT/ML 1 ML VIAL SQ SCH (08:19)
[2023-07-18] MEDS: LOSARTAN 50 MG TAB PO SCH (08:20)
[2023-07-18] MEDS: diphenhydrAMINE 50 MG/ML 1 ML VIAL IVP STA ×2 (09:36→19:41)
[2023-07-18] MEDS: FAMOTIDINE 20 MG/2 ML VIAL IV STA ×2 (09:37→19:41)
[2023-07-18] MEDS: SERTRALINE 50 MG TAB PO SCH (10:31)
--- NOTE | 2023-07-18 10:38 | P.CRDCN ---
History of Present Illness Consult date: 07/18/23 Reason for Consult (text): Acute chest pain, possible ACS History of present illness: This is a 62-year-old male patient of Dr. Ivy with past medical history of hypertension, hyperlipidemia. We have been asked to evaluate the patient for c hest pain. Patient states that he came into the hospital because he had edema in his feet for the past 3 months. He is unable to walk only a very short distance and he feels like his heart is jumping out of his chest. He sometimes has a same sensation with activity. He also complains of chest pain. Chest pain was located on both the right and lateral chest areas. Patient's last office visit was on 07/14/2023 at which time patient was to start on aspirin 81 mg daily and Imdur 30 mg daily. Patient states he did not start the new medications because he lost his prescription at [employer]. Patient was also scheduled for Lexiscan stress test which is in September and he is to have echocardiogram and blood work done before his next visit in [address] Ivy. His initial blood pressure was 201/89. EKG: Sinus rhythm, incomplete right bundle branch block Chest x-ray: Mild cardiomegaly without acute pulmonary process. Laboratory studies: WBC 6.1, hemoglobin 8.7. Creatinine 0.83. Troponin negative x 3. Alkaline phosphatase 131. proBNP 850. Home cardiac medications: Per office chart atorvastatin 80 mg daily, aspirin 81 mg daily, carvedilol 12.5 mg 2 times daily, Imdur 30 mg daily, losartan 25 mg daily. Review Of Systems: At the time of my exam: CONSTITUTIONAL: Denies fever or chills. HEENT: Denies blurred vision, vision changes, or eye pain. Denies hemoptysis CARDIOVASCULAR: Denies chest pain. Denies orthopnea. Denies PND. Denies palpitations, reports pedal edema RESPIRATORY: Denies shortness of breath. GASTROINTESTINAL: Denies abdominal pain. Denies nausea or vomiting. HEMATOLOGIC: Denies bleeding disorders. GENITOURINARY: Denies any blood in urine. SKIN: Denies puritis. Denies rash. Physical examination: Gen: This is a 62-year-old male in no acute distress VS: reviewed, 134/60, heart rate 76. HEENT: Head is atraumatic, normocephalic. Pupils equal, round. Sclerae is anicteric. NECK: Supple. No JVD. LUNGS: Clear to auscultation. No wheezes or rhonchi. No intercostal retractions. HEART: Regular rate and rhythm. 1/6 systolic ejection murmur at the base. ABDOMEN: Soft No tenderness. EXTREMITIES: 2+ pedal edema. No calf tenderness. NEUROLOGICAL: Patient is awake, alert and oriented x3. Assessment: Noncompliance with medication regime Atypical chest pain with normal troponins x 3 Uncontrolled hypertension Lower extremity edema Hypertension Hyperlipidemia Plan: Resume patient's home cardiac medications Increase losartan to 50 mg daily Obtain 2-D echocardiogram and Doppler study to assess cardiac structure and function Depending on results of echocardiogram, further recommendations to follow based upon clinical course Monitor blood pressure closely Thank you kindly for this consultation. Nurse practitioner note has been reviewed, I agree with documented findings and plan of care. Patient was seen and examined. Past Medical History Past Medical History: COPD, GERD/Reflux, Hyperlipidemia, Hypertension, Osteoarthritis (OA), Sleep Apnea/CPAP/BIPAP Additional Past Medical History / Comment(s): Varicose veins and circulation issues. CPAP use. History of Any Multi-Drug Resistant Organisms: None Reported Past Surgical History: Back Surgery, Orthopedic Surgery Additional Past Surgical History / Comment(s): FUSION L5-S1, COLONOSCOPY, SPINAL CORD IMPLANT-LATER REMOVED, BILATERAL GREAT TOE SURGERY,. MICRODISCECTOMY, peripheral spinal cord stimulator placed and later removed. Past Anesthesia/Blood Transfusion Reactions: No Reported Reaction Past Psychological History: Anxiety, Depression Smoking Status: Former smoker Past Alcohol Use History: Occasional Past Drug Use History: Marijuana - Past Family History Father Family Medical History: Cancer Additional Family Medical History / Comment(s): COLON CANCER. Sister(s) Family Medical History: Cancer Additional Family Medical History / Comment(s): BREAST CANCER. Medications and Allergies Home Medications Medication Instructions Recorded Confirmed Type Multivit-Min/Folic/Vit K/Lycop 1 each PO DAILY 06/18/20 07/09/22 History [Men's Multivitamin Tablet] busPIRone HCl [Buspar] 10 mg PO BID 06/18/20 07/09/22 History rOPINIRole HCL [Requip] 0.5 mg PO HS 06/18/20 07/09/22 History Baclofen 10 mg PO TID 06/19/20 07/09/22 History Gabapentin 600 mg PO TID 06/19/20 07/09/22 History Acetaminophen Tab [Tylenol Tab] 500 - 1,000 mg PO Q4-6H PRN 07/08/22 07/09/22 History Atorvastatin Calcium [Lipitor] 80 mg PO HS 07/08/22 07/09/22 History Naproxen Sodium [Aleve] 220 mg PO DAILY 07/08/22 07/09/22 History Omeprazole 20 mg PO W/SUPPER 07/08/22 07/09/22 History Sennosides [Senokot] 8.6 mg PO DAILY 07/08/22 07/09/22 History Sertraline HCl [Zoloft] 75 mg PO BID 07/08/22 07/09/22 History carvediloL 12.5 mg PO BID 07/08/22 07/09/22 History oxyCODONE HCL [oxyCODONE HCL (IR)] 10 mg PO TID 07/08/22 07/09/22 History Acetaminophen Tab [Tylenol] 650 mg PO Q6H #30 tab 07/09/22 Rx Docusate [Colace] 100 mg PO BID #20 capsule 07/09/22 Rx Ibuprofen [Motrin] 600 mg PO Q6HR PRN #40 tab 07/09/22 Rx oxyCODONE HCL [OxyIR] 5 mg PO Q6H PRN 3 Days #10 tab 07/09/22 Rx Allergies Allergy/AdvReac Type Severity Reaction Status Date / Time bupropion [From Wellbutrin] Allergy Anaphylaxis Verified 07/09/22 06:58 peanut Allergy Anaphylaxis Verified 07/09/22 06:58 devinity Allergy Swelling Uncoded 07/18/23 09:42 IV Morphine Allergy "Caused Uncoded 07/09/22 06:58 Ileus" Physical Exam Vitals: Vital Signs Temp Pulse Pulse Pulse Resp BP BP 07/18/23 07:15 97.9 F 76 17 134/60 07/18/23 01:53 98.1 F 72 20 165/71 07/17/23 23:35 98.6 F 84 20 193/78 07/17/23 22:42 98.1 F 80 18 157/72 07/17/23 22:36 86 18 158/72 07/17/23 21:03 97.8 F 89 16 201/89 Pulse Ox 07/18/23 07:15 94 L 07/18/23 01:53 95 07/17/23 23:35 97 07/17/23 22:42 95 07/17/23 22:36 95 07/17/23 21:03 96 Intake and Output 07/17/23 07/18/23 07/18/23 22:59 06:59 14:59 Other: Voiding Method Toilet # Voids 1 Weight 120.202 kg 120.202 kg Results 07/18/23 02:55 07/18/23 02:55 Cardiac Enzymes 07/17/23 07/17/23 07/18/23 Range/Units 21:28 21:28 00:52 AST 40 (17-59) U/L Troponin I <0.012 <0.012 (0.000-0.034) ng/mL 07/18/23 Range/Units 02:55 AST (17-59) U/L Troponin I <0.012 (0.000-0.034) ng/mL Coagulation 07/17/23 Range/Units 21:28 PT 10.7 (10.0-12.5) sec APTT 22.8 (22.0-30.0) sec CBC 07/17/23 07/18/23 Range/Units 21:28 02:55 WBC 7.3 6.1 (3.8-10.6) k/uL RBC 4.12 L 3.59 L (4.30-5.90) m/uL Hgb 10.1 L 8.7 L (13.0-17.5) gm/dL Hct 32.3 L 28.3 L (39.0-53.0) % Plt Count 281 253 (150-450) k/uL Comprehensive Metabolic Panel 07/17/23 07/18/23 Range/Units 21:28 02:55 Sodium 139 137 (137-145) mmol/L Potassium 3.9 3.5 (3.5-5.1) mmol/L Chloride 101 102 (98-107) mmol/L Carbon Dioxide 31 H 31 H (22-30) mmol/L BUN 17 16 (9-20) mg/dL Creatinine 0.80 0.83 (0.66-1.25) mg/dL Glucose 100 H 107 H (74-99) mg/dL Calcium 9.2 8.9 (8.4-10.2) mg/dL AST 40 (17-59) U/L ALT 28 (4-49) U/L Alkaline Phosphatase 131 H (38-126) U/L Total Protein 7.2 (6.3-8.2) g/dL Albumin 4.3 (3.5-5.0) g/dL Current Medications Generic Name Dose Route Start Last Admin Trade Name Freq PRN Reason Stop Dose Admin Acetaminophen 650 mg 07/18/23 00:30 07/18/23 04:11 Acetaminophen Tab 325 Mg Tab PO Not Given Q6H MIKE Aspirin 81 mg 07/18/23 09:00 Aspirin 81 Mg PO DAILY MIKE Atorvastatin Calcium 80 mg 07/18/23 00:30 07/18/23 01:17 Atorvastatin 80 Mg Tab PO 80 mg HS MIKE Administration Baclofen 10 mg 07/18/23 00:30 07/18/23 01:17 Baclofen 10 Mg Tab PO 10 mg TID MIKE Administration Buspirone HCl 10 mg 07/18/23 00:30 07/18/23 01:17 Buspirone Hcl 10 Mg Tab PO 10 mg BID MIKE Administration Carvedilol 12.5 mg 07/18/23 00:30 07/18/23 05:38 Carvedilol 12.5 Mg Tab PO 12.5 mg BID-W/MEALS MIKE Administration Gabapentin 600 mg 07/18/23 00:30 07/18/23 01:17 Gabapentin 300 Mg Cap PO 600 mg TID MIKE Administration Heparin Sodium (Porcine) 5,000 unit 07/18/23 08:00 Heparin Sodium,Porcine 5,000 Unit/Ml 1 Ml Vial SQ Q8HR MIKE Naloxone HCl 0.2 mg 07/17/23 22:20 Naloxone 0.4 Mg/Ml 1 Ml Vial IV Q2M PRN Opioid Reversal Oxycodone HCl 10 mg 07/18/23 00:48 07/18/23 01:17 Oxycodone Hcl 5 Mg Tab PO 10 mg TID PRN Administration Pain Pantoprazole Sodium 40 mg 07/18/23 17:30 Pantoprazole 40 Mg Tablet PO W/SUPPER MIKE Ropinirole HCl 1 mg 07/18/23 00:30 07/18/23 01:17 Ropinirole Hcl 1 Mg Tab PO 1 mg HS MIKE Administration Intake and Output 07/17/23 07/18/23 07/18/23 22:59 06:59 14:59 Other: Voiding Method Toilet # Voids 1 Weight 120.202 kg 120.202 kg 07/18/23 02:55 07/18/23 02:55
[2023-07-18] MEDS: ISOSORBIDE MONONITRATE ER 30 MG TAB.ER.24H PO SCH (12:04)
--- NOTE | 2023-07-18 13:27 | CA ---
Transthoracic Echo Report Name: Tristan Hannon Age: 62 Gender: M : 1960 Exam Date: 07/18/2023 08:17 Exam Location: [facility] Ht (in): 67 Wt (lb): 265 Ordering Physician: Angela Gaviria Attending/Referring Phys: [id number], [employer] Demonstrator Julia Diallo RDCS Procedure CPT: Indications: LVF Cardiac Hx: Technical Quality: Technically difficult study Contrast 1: Definity Total Dose (mL): 2 Contrast 2: Total Dose (mL): MEASUREMENTS (Male / Female) Normal Values 2D ECHO LV Diastolic Diameter PLAX 4.9 cm 4.2 - 5.9 / 3.9 - 5.3 cm LV Systolic Diameter PLAX 3.5 cm IVS Diastolic Thickness 1.4 cm 0.6 - 1.0 / 0.6 - 0.9 cm LVPW Diastolic Thickness 1.0 cm 0.6 - 1.0 / 0.6 - 0.9 cm LV Relative Wall Thickness 0.5 RV Internal Dim ED PLAX 4.1 cm LA Volume 48.2 cm??? 18 - 58 / 22 - 52 cm??? LA Volume Index 19.7 cm???/m??? 16 - 28 cm???/m??? M-MODE Aortic Root Diameter MM 3.6 cm LA Systolic Diameter MM 4.5 cm LA Ao Ratio MM 1.3 AV Cusp Separation MM 2.5 cm DOPPLER AV Peak Velocity 126.3 cm/s AV Peak Gradient 6.4 mmHg AV Mean Velocity 97.1 cm/s AV Mean Gradient 4.0 mmHg AV Velocity Time Integral 28.4 cm LVOT Peak Velocity 127.1 cm/s LVOT Peak Gradient 6.5 mmHg LVOT Velocity Time Integral 27.1 cm MV Area PHT 4.1 cm??? Mitral E Point Velocity 86.9 cm/s Mitral A Point Velocity 63.0 cm/s Mitral E to A Ratio 1.4 MV Deceleration Time 186.8 ms MV E' Velocity 10.2 cm/s Mitral E to MV E' Ratio 8.5 TR Peak Velocity 125.5 cm/s TR Peak Gradient 6.3 mmHg Right Ventricular Systolic Press 11.3 mmHg FINDINGS Left Ventricle Moderately increased left ventricular wall thickness. Left ventricular cavity size normal. Normal left ventricular systolic function with no obvious regional wall motion abnormalities. Left ventricular ejection fraction is estimated at 55-60 %. Grade 1 diastolic dysfunction. Right Ventricle Mild right ventricular dilatation. Right ventricular systolic pressure within normal limits. Right Atrium Right atrium not well visualized. Left Atrium Normal left atrial size. Mitral Valve Structurally normal mitral valve. Mild mitral annular calcification. Mild mitral regurgitation. Aortic Valve No aortic valve stenosis or regurgitation. Tricuspid Valve Structurally normal tricuspid valve. Mild tricuspid regurgitation. Pulmonic Valve Structurally normal pulmonic valve. Pericardium No pericardial effusion. Aorta Normal size aortic root and proximal ascending aorta. CONCLUSIONS Technically difficult study with poor acoustic windows. Preserved LV size and systolic function Mildly thickened pericardium without effusion Previewed by: Dr. Talon Erickson MD (Electronically Signed) Final Date: 18 July 2023 13:26
--- NOTE | 2023-07-18 15:44 | P.PN ---
Subjective Progress Note Date: 07/18/23 Hospital course: Patient is a pleasant 62-year-old male with a past medical history of hypertension, hyperlipidemia, COPD not home oxygen dependent, obstructive sleep apnea CPAP dependent nightly, peripheral vascular disease with chronic lower extremity neuropathy, and chronic back pain status post multiple fusions/surgeries. Presented to the hospital on 07/17/2023 with a chief complaint of chest pain. Upon arrival to the emergency department patient underwent evaluation. Vital signs showing elevated blood pressure of 201/89, heart rate 89, respiratory rate 16, temp 97.8 F, and SpO2 of 96% on room air. EKG completed showing normal sinus rhythm at 83 bpm with no significant T wave or ST abnormalities showing no signs of acute ischemia upon personal review and interpretation. Labs were completed and reviewed. CBC showing microcytic anemia with hemoglobin of 10.1. Coagulation profile was normal findings including D-dimer of 0.35. BMP showing hypercarbia with bicarb of 31 otherwise normal findings. Blood glucose was 100. Magnesium 1.9. Liver profile showing elevated alkaline phosphatase of 131. Troponin was negative at less than 0.012 and proBNP was 50. Patient was admitted under our services with consultation to cardiology. Troponins trended throughout the night all negative at less than 0.012 x 3 draws. Repeat morning labs revealed hemoglobin decreasing from 10.1 down to 8.7. Orders placed for iron profile. Physical exam: Vital signs reviewed and stable. General: Nontoxic, no distress and appears stated age. Derm: Skin warm and dry, normal coloration for ethnicity. Head: Atraumatic, normocephalic and symmetric. Eyes: EOMs intact, no lid lag, and anicteric sclera Mouth: no lip lesions, mucus membranes moist Cardiovascular: regular rate and rhythm with normal S1S2, no murmur, positive posterior tibial pulses bilaterally, and cap refill < 2 seconds. Lungs: Respirations even, regular, and unlabored on room air. Lungs CTA bilaterally, no rhonchi, no rales, no wheezing, and no accessory muscle usage. Abdominal: soft, nontender to palpation, no guarding, no appreciable organomegaly Ext: ROM intact. No gross muscle atrophy, no edema, no contractures Neuro: Speech clear, face symmetrical and CN II-XII grossly intact with no noted focal neuro deficits Psych: Alert and oriented to person, place, time, and situation. Appropriate and pleasant affect. Assessment and Plan of Care: Chest pain, acute coronary event ruled out Hypertension -Cardiology consulted, reviewed documentation in chart. -Telemetry monitoring -Cardiac diet -Continue daily cardiac medication regimen with 81 mg daily, atorvastatin 80 mg nightly, carvedilol 12.5 mg twice daily with meals and losartan was increased from 25 mg daily to 50 mg daily and patient started on isosorbide mononitrate 30 mg daily. -Echocardiogram Microcytic anemia Initial hemoglobin was 10.1 with repeat hemoglobin this morning decreasing down to 8.7 and previous hemoglobin drawn 07/09/2022 was 12.1. Patient denies any dark tarry stools or noted bleeding. Orders placed for iron profile. Hypertension Continue daily medication regimen with carvedilol 12.5 mg twice daily and l osartan 50 mg daily. Hyperlipidemia Continue daily medication regimen with atorvastatin 80 mg nightly. Data and imaging reviewed: Troponins trended throughout the night all negative at less than 0.012 x 3 draws. Repeat morning labs revealed hemoglobin decreasing from 10.1 down to 8.7. Orders placed for iron profile. Vital signs stable with blood pressure 134/60, heart rate 76, respiratory rate 17, temp 97.9 F, and SpO2 of 94% on room air. Orders placed for orthostatic vitals and following up on results patient negative for orthostatic hypotension with blood pressure supine 127/70, sitting 107/50, and standing 113/65. CODE STATUS: Full Code DVT prophylaxis: Heparin Anticipated discharge date: Within the next [address]: Home Patient was seen independently by Nurse Pracitioner. This document was prepared using [employer] dictation software. Please allow for errors in electrocardiogram technician, while rare they do occur. I reviewed the documentation as provided by the ARLEEN above, who is the original author of this note. I agree with the documented assessment and plan, with the following changes: none Objective - Vital Signs Vital signs: Vital Signs Temp 97.9 F 07/18/23 07:15 Pulse 76 07/18/23 07:15 Resp 17 07/18/23 07:15 BP 134/60 07/18/23 07:15 Pulse Ox 94 L 07/18/23 07:15 FiO2 Intake & Output 07/17/23 07/18/23 07/18/23 18:59 06:59 18:59 Weight 120.202 kg Other: Voiding Method Toilet # Voids 1 - Labs CBC & Chem 7: 07/18/23 02:55 07/18/23 02:55 Labs: Abnormal Lab Results - Last 24 Hours (Table) 07/17/23 07/17/23 07/18/23 Range/Units 21:28 21:28 02:55 RBC 4.12 L 3.59 L (4.30-5.90) m/uL Hgb 10.1 L 8.7 L (13.0-17.5) gm/dL Hct 32.3 L 28.3 L (39.0-53.0) % MCV 78.6 L 78.9 L (80.0-100.0) fL MCH 24.4 L 24.1 L (25.0-35.0) pg MCHC 30.6 L (31.0-37.0) g/dL Carbon Dioxide 31 H (22-30) mmol/L Glucose 100 H (74-99) mg/dL Alkaline Phosphatase 131 H (38-126) U/L 07/18/23 Range/Units 02:55 RBC (4.30-5.90) m/uL Hgb (13.0-17.5) gm/dL Hct (39.0-53.0) % MCV (80.0-100.0) fL MCH (25.0-35.0) pg MCHC (31.0-37.0) g/dL Carbon Dioxide 31 H (22-30) mmol/L Glucose 107 H (74-99) mg/dL Alkaline Phosphatase (38-126) U/L
[2023-07-18 16:11] LABS: % Iron Saturation 3.9 (15.00-50.00)
[2023-07-18] MEDS: PANTOPRAZOLE 40 MG TABLET PO SCH (16:32)
[2023-07-18] MEDS: SODIUM FERRIC GLUCONAT-SUCROSE 125 MG in SODIUM CHLORIDE 0.9% 100 ML IVPB SCH (18:48)
[2023-07-18] MEDS: methylPREDNISolone SOD SUCCI 125 MG/2 ML VIAL IV STA (19:41)
[2023-07-18] MEDS: MORPHINE SULFATE 2 MG/ML SYRINGE IVP STA (23:41)
[2023-07-19 03:49] VITALS: TEMP 97.4
[2023-07-19 07:27] VITALS: BP 178/76; RESP 19
[2023-07-19 08:59] LABS: HCT 30.8 % (39.6-50.0); HGB 8.9 g/dL (13.0-17.0); MCH 23.5 pg (27.0-32.0); MCHC 28.9 g/dL (32.0-37.0); MCV 81.3 FL (80.0-97.0); Mean Platelet Volume 10.2 FL (9.5-12.2); NRBC Per 100 WBC 0 X 10*3/uL (0.00-0.01); Platelet Count 316 X 10*3/uL (140-440); RBC 3.79 X 10*6/uL (4.40-5.60); RDW 14.5 % (11.5-14.5); WBC 7.87 X 10*3/uL (4.50-10.00)
[2023-07-19 09:05] LABS: ALT 24 U/L (10-49); AST 32 U/L (14-35); Albumin 4.2 g/dL (3.8-4.9); Albumin/Globulin Ratio 1.68 Ratio (1.60-3.17); Alkaline Phosphatase 114 U/L (41-126); BUN/Creat Ratio 14.56 Ratio (12.00-20.00); Blood Urea Nitrogen 13.1 mg/dL (9.0-27.0); Calcium 9.4 mg/dL (8.7-10.3); Carbon Dioxide 28.8 mmol/L (21.6-31.8); Chloride 102 mmol/L (96-109); Globulin 2.5 g/dL (1.6-3.3); Glucose 180 mg/dL (70-110); Potassium 4.4 mmol/L (3.5-5.5); Sodium 142 mmol/L (135-145); Total Bilirubin 0.2 mg/dL (0.3-1.2); Total Protein 6.7 g/dL (6.2-8.2)
[2023-07-19 10:47] VITALS: PULSE 115
--- NOTE | 2023-07-19 10:57 | P.DS ---
Providers Date of admission: 07/17/23 22:22 Expected date of discharge: 07/19/23 Attending physician: Ledy Beth MD Consults: 07/17/23 22:20 Consult Physician Urgent Consulting Provider: [facility] Consult Reason/Comments: acute chest pain, possible acs Do you want consulting provider notified?: Yes Primary care physician: [facility] Hospital Course: Discharge Diagnosis: Chest pain, acute coronary event ruled out. Continue daily cardiac medication regimen with 81 mg daily, atorvastatin 80 mg nightly, carvedilol 12.5 mg twice daily, losartan 50 mg daily, and isosorbide mononitrate 30 mg daily. Microcytic anemia, iron deficiency. Iron profile was obtained showing a low iron of 18, iron percentage saturation is 462, and transferrin of 3.90. Patient was given IV Ferrlecit but had a reaction with reports of heart racing and tightness in his throat and transfusion was stopped. Will hold off on starting patient on oral ferrous sulfate and recommend outpatient follow-up with hematology for further evaluation and recommendation Hypertension. Continue daily medication regimen with carvedilol 12.5 mg twice daily, Imdur 30 mg daily and losartan 50 mg daily. Hyperlipidemia. Continue daily medication regimen with atorvastatin 80 mg nightly. Hospital Course: Patient is a pleasant 62-year-old male with a past medical history of hypertension, hyperlipidemia, COPD not home oxygen dependent, obstructive sleep apnea CPAP dependent nightly, peripheral vascular disease with chronic lower extremity neuropathy, and chronic back pain status post multiple fusions/surgeries. Presented to the hospital on 07/17/2023 with a chief complaint of chest pain. Upon arrival to the emergency department patient underwent evaluation. Vital signs showing elevated blood pressure of 201/89, heart rate 89, respiratory rate 16, temp 97.8 F, and SpO2 of 96% on room air. EKG completed showing normal sinus rhythm at 83 bpm with no significant T wave or ST abnormalities showing no signs of acute ischemia upon personal review and interpretation. Labs were completed and reviewed. CBC showing microcytic anem ia with hemoglobin of 10.1. Coagulation profile was normal findings including D-dimer of 0.35. BMP showing hypercarbia with bicarb of 31 otherwise normal findings. Blood glucose was 100. Magnesium 1.9. Liver profile showing elevated alkaline phosphatase of 131. Troponin was negative at less than 0.012 and proBNP was 50. Patient was admitted under our services with consultation to cardiology. Troponins trended throughout the night all negative at less than 0.012 x 3 draws. Repeat morning labs revealed hemoglobin decreasing from 10.1 down to 8.7 and repeat morning labs show stable hemoglobin of 8.9. Iron profile was obtained showing a low iron of 18, iron percentage saturation is 462, and transferrin of 3.90. Patient was given IV Ferrlecit but had a reaction with reports of heart racing and tightness in his throat and transfusion was stopped. Will hold off on starting patient on oral ferrous sulfate and recommend outpatient follow-up with hematology for further evaluation and recommendations. Patient encouraged to eat iron rich diet. Echocardiogram was completed showing a preserved EF of 55 to 60% with mildly thickened pericardium without effusion otherwise no significant valvular or structural abnormalities reported. Cardiology evaluated and started patient on Imdur and losartan and clearing patient from cardiac perspective for discharge recommending outpatient follow-up in their office in 1 to 2 weeks. Ambulatory pulse ox and heart rate was obtained. SpO2 at rest and with ambulation remained 94% and heart rate 97 at rest increasing to 115 with ambulation. Medically, patient is stable for discharge at this time. Prescription sent for losartan and Imdur and patient to follow-up outpatient with PCP in 1 to 2 days, plastic panel installer in 1 to 2 weeks, and recommend outpatient follow-up with experimental mechanic electrical for further evaluation of anemia. Physical exam: Vital signs reviewed and stable. General: Nontoxic, no distress and appears stated age. Derm: Skin warm and dry, normal coloration for ethnicity. Head: Atraumatic, normocephalic and symmetric. Eyes: EOMs intact, no lid lag, and anicteric sclera Mouth: no lip lesions, mucus membranes moist Cardiovascular: regular rate and rhythm with normal S1S2, no murmur, positive posterior tibial pulses bilaterally, and cap refill < 2 seconds. Lungs: Respirations even, regular, and unlabored on room air. Lungs CTA bilaterally, no rhonchi, no rales, no wheezing, and no accessory muscle usage. Abdominal: soft, nontender to palpation, no guarding, no appreciable or ganomegaly Ext: ROM intact. No gross muscle atrophy, no edema, no contractures Neuro: Speech clear, face symmetrical and CN II-XII grossly intact with no noted focal neuro deficits Psych: Alert and oriented to person, place, time, and situation. Appropriate and pleasant affect. A total of 33 minutes of time were spent preparing this complex discharge summary. Pt was discharged on 07/19/2023 at 10:47 AM. Patient was seen independently by Nurse Practitioner. This document was prepared using [employer] dictation software. Please allow for errors in renal medicine physician while rare they do occur. I reviewed the documentation as provided by the ARLEEN above, who is the original author of this note. I agree with the documented assessment and plan, with the following changes: none Patient Condition at Discharge: Stable Plan - Discharge Summary New Discharge Prescriptions: New Isosorbide Mononitrate ER [Imdur] 30 mg PO DAILY 30 Days #30 tab Losartan [Cozaar] 50 mg PO DAILY 30 Days #30 tab Continue busPIRone HCl [Buspar] 10 mg PO BID Multivit-Min/Folic/Vit K/Lycop [Men's Multivitamin Tablet] 1 each PO DAILY Sertraline HCl [Zoloft] 75 mg PO BID oxyCODONE HCL [oxyCODONE HCL (IR)] 10 mg PO TID Naproxen Sodium [Aleve] 220 mg PO DAILY carvediloL 12.5 mg PO BID Omeprazole 20 mg PO W/SUPPER Docusate [Colace] 100 mg PO BID #20 capsule Ibuprofen [Motrin] 600 mg PO Q6HR PRN #40 tab PRN Reason: Pain oxyCODONE HCL [OxyIR] 5 mg PO Q6H PRN 3 Days #10 tab PRN Reason: Pain rOPINIRole HCL [Requip] 0.5 mg PO HS Baclofen 10 mg PO TID Gabapentin 600 mg PO TID Acetaminophen Tab [Tylenol] 500 - 1,000 mg PO Q4-6H PRN PRN Reason: Pain Sennosides [Senokot] 8.6 mg PO DAILY Atorvastatin Calcium [Lipitor] 80 mg PO HS Acetaminophen Tab [Tylenol] 650 mg PO Q6H #30 tab Discharge Medication List Multivit-Min/Folic/Vit K/Lycop [Men's Multivitamin Tablet] 1 each PO DAILY 06/18/20 [History] busPIRone HCl [Buspar] 10 mg PO BID 06/18/20 [History] rOPINIRole HCL [Requip] 0.5 mg PO HS 06/18/20 [History] Baclofen 10 mg PO TID 06/19/20 [History] Gabapentin 600 mg PO TID 06/19/20 [History] Acetaminophen Tab [Tylenol] 500 - 1,000 mg PO Q4-6H PRN 07/08/22 [History] Atorvastatin Calcium [Lipitor] 80 mg PO HS 07/08/22 [History] Naproxen Sodium [Aleve] 220 mg PO DAILY 07/08/22 [History] Omeprazole 20 mg PO W/SUPPER 07/08/22 [History] Sennosides [Senokot] 8.6 mg PO DAILY 07/08/22 [History] Sertraline HCl [Zoloft] 75 mg PO BID 07/08/22 [History] carvediloL 12.5 mg PO BID 07/08/22 [History] oxyCODONE HCL [oxyCODONE HCL (IR)] 10 mg PO TID 07/08/22 [History] Acetaminophen Tab [Tylenol] 650 mg PO Q6H #30 tab 07/09/22 [Rx] Docusate [Colace] 100 mg PO BID #20 capsule 07/09/22 [Rx] Ibuprofen [Motrin] 600 mg PO Q6HR PRN #40 tab 07/09/22 [Rx] oxyCODONE HCL [OxyIR] 5 mg PO Q6H PRN 3 Days #10 tab 07/09/22 [Rx] Isosorbide Mononitrate ER [Imdur] 30 mg PO DAILY 30 Days #30 tab 07/19/23 [Rx] Losartan [Cozaar] 50 mg PO DAILY 30 Days #30 tab 07/19/23 [Rx] Follow up Appointment(s)/Referral(s): Talon Erickson MD [STAFF PHYSICIAN] - 07/25/23 9:45 am (gabi scan stress test at [facility] ) Elif Houston MD [STAFF PHYSICIAN] - 1 Week (Schedule follow up appointment with experimental mechanic electrical for further eval of anemia) [facility]Clinic [Primary Care Provider] - 1-2 days Patient Instructions/Handouts: Chest Pain (DC), Heart Palpitations (DC), Iron Rich Diet (DC), Anemia (DC) Activity/Diet/Wound Care/Special Instructions: Activity: As tolerated. Take breaks as needed. Diet: Heart healthy and carb consistent diet. Avoid salts, or foods with hidden salts such as canned or boxed foods and frozen dinners. Extra salt makes your heart work harder and traps the fluid in your body for longer. Special Instructions: Take all of your medications as directed and remember to keep all of your doctor's appointments and follow-up as needed. Again, I would like to thank you for your service, it is always an honor to be able to participate in providing care to a [place]!!!! Thank you for allowing us to participate in your care, it was truly a pleasure having you for our patient!!! Discharge Disposition: HOME SELF-CARE
--- NOTE | 2023-07-19 11:19 | P.PN ---
Subjective Progress Note Date: 07/19/23 Reason for Consult (text): Acute chest pain, possible ACS History of present illness: This is a 62-year-old male patient of Dr. Ivy with past medical history of hypertension, hyperlipidemia. We have been asked to evaluate the patient for chest pain. Patient states that he came into the hospital because he had edema in his feet for the past 3 months. He is unable to walk only a very short distance and he feels like his heart is jumping out of his chest. He sometimes has a same sensation with activity. He also complains of chest pain. Chest pain was located on both the right and lateral chest areas. Patient's last office visit was on 07/14/2023 at which time patient was to start on aspirin 81 mg daily and Imdur 30 mg daily. Patient states he did not start the new medications because he lost his prescription at [employer]. Patient was also scheduled for Lexiscan stress test which is in September and he is to have echocardiogram and blood work done before his next visit in [address] Ivy. His initial blood pressure was 201/89. EKG: Sinus rhythm, incomplete right bundle branch block Chest x-ray: Mild cardiomegaly without acute pulmonary process. Laboratory studies: WBC 6.1, hemoglobin 8.7. Creatinine 0.83. Troponin ne gative x 3. Alkaline phosphatase 131. proBNP 850. Home cardiac medications: Per office chart atorvastatin 80 mg daily, aspirin 81 mg daily, carvedilol 12.5 mg 2 times daily, Imdur 30 mg daily, losartan 25 mg daily. 07/18 Patient is seen today in follow-up. He states he is feeling great until he w alked to the desk. His blood pressure went up this morning to 178/76. Previous blood pressure readings have been running in the 120s and 130s systolic. Patient denies having any chest pain, no lightheadedness or dizziness. Heart rate has been in the 70s. Repeat blood work reveals hemoglobin 8.9. Sodium 142, potassium 4.4, creatinine 0.9. Physical examination: Gen: This is a 62-year-old male in no acute distress VS: reviewed LUNGS: Clear to auscultation. No wheezes or rhonchi. No intercostal retractions. HEART: Regular rate and rhythm. 1/6 systolic ejection murmur at the base. EXTREMITIES: 1+ pedal edema. No calf tenderness. NEUROLOGICAL: Patient is awake, alert and oriented x3. Assessment: Noncompliance with medication regime Atypical chest pain with normal troponins x 3 Uncontrolled hypertension Lower extremity edema Hypertension Hyperlipidemia Plan: Continue patient's home cardiac medications Continue losartan to 50 mg daily Patient is cleared from cardiology for discharge home and may follow-up in the office with Dr. Ivy in 1 week. Nurse practitioner note has been reviewed, I agree with documented findings and plan of care. Patient was seen and examined. Objective - Vital Signs Vital signs: Vital Signs Temp 97.4 F L 07/19/23 07:00 Pulse 96 07/19/23 07:00 Resp 19 07/19/23 07:00 BP 178/76 07/19/23 07:00 Pulse Ox 94 L 07/19/23 07:00 FiO2 Intake & Output 07/18/23 07/19/23 07/19/23 18:59 06:59 18:59 Intake Total 118 Balance 118 Intake: Oral 118 Other: Voiding Method Toilet # Voids 3 3 - Labs CBC & Chem 7: 07/19/23 04:19 07/19/23 04:19 Labs: Abnormal Lab Results - Last 24 Hours (Table) 07/18/23 Range/Units 02:55 Iron 18 L (65-175) UG/DL TIBC 462 H (228-460) UG/DL % Saturation 3.90 L (15.00-50.00)
== END 2023-07-19 12:01 | disposition home or self-care (01) ==
LOC: EC 20:58 → 6NMEDSUR 22:22
PROVIDERS: ADMIT Internal Medicine; ATTEND Internal Medicine
DX: R07.89 Other chest pain (principal); D50.9 Iron deficiency anemia, unspecified; I11.0 Hypertensive heart disease with heart failure; I50.9 Heart failure, unspecified; T46.3X6A Underdosing of coronary vasodilators, initial encounter; Z91.128 Patient's intentional underdosing of medication regimen for other reason; R00.0 Tachycardia, unspecified; R07.0 Pain in throat; T45.4X5A Adverse effect of iron and its compounds, initial encounter; J44.9 Chronic obstructive pulmonary disease, unspecified; I45.10 Unspecified right bundle-branch block; E78.5 Hyperlipidemia, unspecified; G47.33 Obstructive sleep apnea (adult) (pediatric); I73.9 Peripheral vascular disease, unspecified; G62.9 Polyneuropathy, unspecified; R74.8 Abnormal levels of other serum enzymes; G89.29 Other chronic pain; M54.9 Dorsalgia, unspecified; Z79.82 Long term (current) use of aspirin; Z79.899 Other long term (current) drug therapy; Z88.5 Allergy status to narcotic agent; Z91.010 Allergy to peanuts; Z91.09 Other allergy status, other than to drugs and biological substances; Z87.891 Personal history of nicotine dependence; Z98.890 Other specified postprocedural states; Z98.1 Arthrodesis status
CPT/HCPCS: 96376; 96365; 96372; 96375; 99285; 36415; 93005 ×2; 93306; 85379; 83880; 80053 ×2; 80048; 83540; 83550; 83690; 83735 ×2; 84484 ×2; 85025 ×2; 85027; 85610; 85730; 71046; G0378 ×3; J1200; J1644; J3490; J2916; J2270; Q9957; J2919

== ENCOUNTER 2023-07-25 16:03 | Observation (INO) | payer OTHER, MEDICARE ==
[2023-07-25 16:39] LABS: Glucose,Whole Blood 162 mg/dL (70-110)
--- NOTE | 2023-07-25 16:45 | ED ---
General Adult HPI - General Chief complaint: Neuro Symptoms/Deficit Stated complaint: Slurred Speech,Twitching Time Seen by Provider: 07/25/23 16:29 Source: patient, RN notes reviewed Mode of arrival: wheelchair Limitations: no limitations - History of Present Illness Initial comments: Patient is a 62-year-old male presenting to the emergency department with slurred speech. Onset of symptoms was last night. Symptoms do persist. No history of similar symptoms previously. Patient also feels off balance. Patient states on his exam that his left leg weakness may be somewhat worse than normal. Patient did have a fall without injury. Patient has had a little bit of a headache the past few days. Patient does not feel confused - Related Data Home Medications Medication Instructions Recorded Confirmed Multivit-Min/Folic/Vit K/Lycop 1 each PO DAILY 06/18/20 07/09/22 [Men's Multivitamin Tablet] busPIRone HCl [Buspar] 10 mg PO BID 06/18/20 07/09/22 rOPINIRole HCL [Requip] 0.5 mg PO HS 06/18/20 07/09/22 Baclofen 10 mg PO TID 06/19/20 07/09/22 Gabapentin 600 mg PO TID 06/19/20 07/09/22 Acetaminophen Tab [Tylenol] 500 - 1,000 mg PO Q4-6H PRN 07/08/22 07/09/22 Atorvastatin Calcium [Lipitor] 80 mg PO HS 07/08/22 07/09/22 Naproxen Sodium [Aleve] 220 mg PO DAILY 07/08/22 07/09/22 Omeprazole 20 mg PO W/SUPPER 07/08/22 07/09/22 Sennosides [Senokot] 8.6 mg PO DAILY 07/08/22 07/09/22 Sertraline HCl [Zoloft] 75 mg PO BID 07/08/22 07/09/22 carvediloL 12.5 mg PO BID 07/08/22 07/09/22 oxyCODONE HCL [oxyCODONE HCL (IR)] 10 mg PO TID 07/08/22 07/09/22 Previous Rx's Medication Instructions Recorded Acetaminophen Tab [Tylenol] 650 mg PO Q6H #30 tab 07/09/22 Docusate [Colace] 100 mg PO BID #20 capsule 07/09/22 Ibuprofen [Motrin] 600 mg PO Q6HR PRN #40 tab 07/09/22 oxyCODONE HCL [OxyIR] 5 mg PO Q6H PRN 3 Days #10 tab 07/09/22 Isosorbide Mononitrate ER [Imdur] 30 mg PO DAILY 30 Days #30 tab 07/19/23 Losartan [Cozaar] 50 mg PO DAILY 30 Days #30 tab 07/19/23 Allergies Allergy/AdvReac Type Severity Reaction Status Date / Time bupropion [From Wellbutrin] Allergy Anaphylaxis Verified 07/25/23 16:17 peanut Allergy Anaphylaxis Verified 07/25/23 16:17 devinity Allergy Swelling Uncoded 07/25/23 16:17 IV Morphine Allergy "Caused Uncoded 07/25/23 16:17 Ileus" Review of Systems ROS Statement: Those systems with pertinent positive or pertinent negative responses have been documented in the HPI. ROS Other: All systems not noted in ROS Statement are negative. Constitutional: Denies: fever Eyes: Denies: eye pain ENT: Denies: ear pain Respiratory: Denies: cough, dyspnea Cardiovascular: Denies: chest pain Endocrine: Denies: fatigue Gastrointestinal: Denies: abdominal pain Neurological: Reports: as per HPI Past Medical History Past Medical History: COPD, GERD/Reflux, Hyperlipidemia, Hypertension, Osteoarthritis (OA), Sleep Apnea/CPAP/BIPAP Additional Past Medical History / Comment(s): Varicose veins and circulation issues. CPAP use. History of Any Multi-Drug Resistant Organisms: None Reported Past Surgical History: Back Surgery, Orthopedic Surgery Additional Past Surgical History / Comment(s): FUSION L5-S1, COLONOSCOPY, SPINAL CORD IMPLANT-LATER REMOVED, BILATERAL GREAT TOE SURGERY,. MICRODISCECTOMY, peripheral spinal cord stimulator placed and later removed. Past Anesthesia/Blood Transfusion Reactions: No Reported Reaction Past Psychological History: Anxiety, Depression Smoking Status: Former smoker Past Alcohol Use History: Occasional Past Drug Use History: Marijuana - Past Family History Father Family Medical History: Cancer Additional Family Medical History / Comment(s): COLON CANCER. Sister(s) Family Medical History: Cancer Additional Family Medical History / Comment(s): BREAST CANCER. General Exam Limitations: no limitations General appearance: alert, in no apparent distress Head exam: Present: normocephalic Eye exam: Present: normal appearance, PERRL, EOMI ENT exam: Present: normal oropharynx Neck exam: Present: normal inspection Respiratory exam: Present: normal lung sounds bilaterally Cardiovascular Exam: Present: regular rate, normal rhythm GI/Abdominal exam: Present: soft. Absent: tenderness Extremities exam: Present: normal inspection Neurological exam: Present: alert Expanded Neurological exam: Present: protecting the airway, other (Slurred speech) Cranial nerves: EOM's Intact: Normal, Facial Sensation: Normal Sensory exam: Upper Extremity Light Touch: Normal, Lower Extremity Light Touch: Normal Motor strength exam: RUE: 5, LUE: 5, RLE: 4, LLE: 3 Eye Response: (4) open spontaneously Motor Response: (6) obeys commands Verbal Response: (5) oriented Psychiatric exam: Present: normal affect, normal mood Skin exam: Present: normal color Course Vital Signs 07/25/23 07/25/23 07/25/23 16:09 16:42 16:57 Temperature 97.9 F 97.9 F Pulse Rate 83 86 82 Respiratory 18 17 17 Rate Blood Pressure 113/51 121/57 134/61 O2 Sat by Pulse 93 L 94 L 92 L Oximetry 07/25/23 07/25/23 07/25/23 17:12 17:27 17:46 Temperature 98.9 F 98.1 F Pulse Rate 83 84 82 Respiratory 18 19 16 Rate Blood Pressure 133/66 118/65 125/54 O2 Sat by Pulse 93 L 94 L 96 Oximetry EKG Findings - EKG Results: EKG: interpreted by ERMD, sinus rhythm, normal axis, normal QRS, normal ST/T Medical Decision Making - Medical Decision Making Was pt. sent in by a medical professional or institution (DARY Simon, RESEARCH ARCHAEOLOGIST, urgent care, hospital, or assisted...) When possible be specific @ -No Did you speak to anyone other than the patient for history (EMS, parent, family, police, friend...)? What history was obtained from this source @ - is present helps provide history including onset and symptoms Did you review nursing and triage notes (agree or disagree)? Why? @ -I reviewed and agree with nursing and triage notes Were old charts reviewed (outside hosp., previous admission, EMS record, old EKG, old radiological studies, urgent care reports/EKG's, assisted records)? Report findings @ -No old charts were reviewed Differential Diagnosis (chest pain, altered mental status, abdominal pain women, abdominal pain men, vaginal bleeding, weakness, fever, dyspnea, syncope, headache, dizziness, GI bleed, back pain, seizure, CVA, palpatations, mental health, musculoskeletal)? @ -Differential Weakness: Hypoglycemia, shock, sepsis, hyponatremia, anemia, infection, WA, ETOH, adverse medicine reaction, overdose, stroke, this is not meant to be an all-inclusive list. EKG interpreted by me (3pts min.). @ -As above X-rays interpreted by me (1pt min.). @ -Chest x-ray shows cardiomegaly CT interpreted by me (1pt min.). @ -CT of the brain does not reveal acute abnormality U/S interpreted by me (1pt. min.). @ -None done What testing was considered but not performed or refused? (CT, X-rays, U/S, labs)? Why? @ -None What meds were considered but not given or refused? Why? @ -None Did you discuss the management of the patient with other professionals (pr ofessionals i.e. , PA, RESEARCH ARCHAEOLOGIST, lab, RT, psych nurse, high school social science teacher, media production operator, teacher, chief sales officer, piano case maker)? Give summary @ -Case discussed with Dr. Lyons who will admit this [place] patient. Was smoking cessation discussed for >3mins.? @ -No Was critical care preformed (if so, how long)? @ -No Were there social determinants of health that impacted care today? How? (Homelessness, low income, unemployed, alcoholism, drug addiction, transportation, low edu. Level, literacy, decrease access to med. care, [facility], rehab)? @ -No Was there de-escalation of care discussed even if they declined (Discuss DNR or withdrawal of care, Hospice)? DNR status @ -No What co-morbidities impacted this encounter? (DM, HTN, Smoking, COPD, CAD, Cancer, CVA, ARF, Chemo, Hep., AIDS, mental health diagnosis, sleep apnea, morbid obesity)? @ -Chronic left leg weakness Was patient admitted / discharged? Hospital course, mention meds given and route, prescriptions, significant lab abnormalities, going to OR and other pertinent info. @ -Patient reevaluated. Patient and family updated. Patient will be admitted with neurology consult. Admission orders written . there is concern for probable stroke. Undiagnosed new problem with uncertain prognosis? @ -No Drug Therapy requiring intensive monitoring for toxicity (Heparin, Nitro, Insulin, Cardizem)? @ -No Were any procedures done? @ -No Diagnosis/symptom? @ -CVA Acute, or Chronic, or Acute on Chronic? @ -Acute Uncomplicated (without systemic symptoms) or Complicated (systemic symptoms)? @ -Default Side effects of treatment? @ -No Exacerbation, Progression, or Severe Exacerbation? @ -No Poses a threat to life or bodily function? How? (Chest pain, USA, WA, pneumonia, PE, COPD, DKA, ARF, appy, cholecystitis, CVA, Diverticulitis, Homicidal, Suicidal, threat to staff... and all critical care pts) @ -No - Lab Data Result diagrams: 07/25/23 17:30 07/25/23 17:30 Lab Results 07/25/23 07/25/23 07/25/23 Range/Units 16:38 17:30 17:30 WBC 6.9 (3.8-10.6) k/uL RBC 3.67 L (4.30-5.90) m/uL Hgb 8.6 L (13.0-17.5) gm/dL Hct 28.3 L (39.0-53.0) % MCV 77.2 L (80.0-100.0) fL MCH 23.5 L (25.0-35.0) pg MCHC 30.4 L (31.0-37.0) g/dL RDW 15.4 (11.5-15.5) % Plt Count 294 (150-450) k/uL MPV 7.9 Neutrophils % 63 % Lymphocytes % 24 % Monocytes % 8 % Eosinophils % 2 % Basophils % 0 % Neutrophils # 4.3 (1.3-7.7) k/uL Lymphocytes # 1.6 (1.0-4.8) k/uL Monocytes # 0.5 (0-1.0) k/uL Eosinophils # 0.2 (0-0.7) k/uL Basophils # 0.0 (0-0.2) k/uL Hypochromasia Marked Poikilocytosis Slight Microcytosis Slight PT 10.4 (10.0-12.5) sec INR 0.9 (<1.2) APTT 22.6 (22.0-30.0) sec Sodium (137-145) mmol/L Potassium (3.5-5.1) mmol/L Chloride (98-107) mmol/L Carbon Dioxide (22-30) mmol/L Anion Gap mmol/L BUN (9-20) mg/dL Creatinine (0.66-1.25) mg/dL Est GFR (CKD-EPI)AfAm (>60 ml/min/1.73 sqM) Est GFR (CKD-EPI)NonAf (>60 ml/min/1.73 sqM) Glucose (74-99) mg/dL POC Glucose (mg/dL) 162 H (70-110) mg/dL POC Glu Aircraft Landing Gear Inspector ID Twin Son Calcium (8.4-10.2) mg/dL Total Bilirubin (0.2-1.3) mg/dL AST (17-59) U/L ALT (4-49) U/L Alkaline Phosphatase (38-126) U/L Creatine Kinase (55-170) U/L Total Protein (6.3-8.2) g/dL Albumin (3.5-5.0) g/dL 07/25/23 Range/Units 17:30 WBC (3.8-10.6) k/uL RBC (4.30-5.90) m/uL Hgb (13.0-17.5) gm/dL Hct (39.0-53.0) % MCV (80.0-100.0) fL MCH (25.0-35.0) pg MCHC (31.0-37.0) g/dL RDW (11.5-15.5) % Plt Count (150-450) k/uL MPV Neutrophils % % Lymphocytes % % Monocytes % % Eosinophils % % Basophils % % Neutrophils # (1.3-7.7) k/uL Lymphocytes # (1.0-4.8) k/uL Monocytes # (0-1.0) k/uL Eosinophils # (0-0.7) k/uL Basophils # (0-0.2) k/uL Hypochromasia Poikilocytosis Microcytosis PT (10.0-12.5) sec INR (<1.2) APTT (22.0-30.0) sec Sodium 134 L (137-145) mmol/L Potassium 4.2 (3.5-5.1) mmol/L Chloride 98 (98-107) mmol/L Carbon Dioxide 28 (22-30) mmol/L Anion Gap 8 mmol/L BUN 36 H (9-20) mg/dL Creatinine 2.20 H (0.66-1.25) mg/dL Est GFR (CKD-EPI)AfAm 36 (>60 ml/min/1.73 sqM) Est GFR (CKD-EPI)NonAf 31 (>60 ml/min/1.73 sqM) Glucose 106 H (74-99) mg/dL POC Glucose (mg/dL) (70-110) mg/dL POC Glu Aircraft Landing Gear Inspector ID Calcium 8.6 (8.4-10.2) mg/dL Total Bilirubin 0.3 (0.2-1.3) mg/dL AST 44 (17-59) U/L ALT 30 (4-49) U/L Alkaline Phosphatase 124 (38-126) U/L Creatine Kinase 58 (55-170) U/L Total Protein 6.4 (6.3-8.2) g/dL Albumin 3.9 (3.5-5.0) g/dL Disposition Clinical Impression: Cerebrovascular accident (CVA) Disposition: ADMITTED IP TO THIS HOSP Is patient prescribed a controlled substance at d/c from ED?: No Referrals: [facility],Clinic [Primary Care Provider] - 1-2 days Time of Disposition: 18:08
--- NOTE | 2023-07-25 17:31 | CT ---
EXAMINATION TYPE: CT brain wo con CT DLP: 1162.3 mGycm, Automated exposure control for dose reduction was used. DATE OF EXAM: 07/25/2023 5:13 PM COMPARISON: None. CLINICAL INDICATION:Male, 62 years old with history of Neuro deficit, acute, stroke suspected, cva TECHNIQUE: Brain: Axial CT images of the brain were obtained with coronal and sagittal reformats created and rev iewed. Contrast used: None. Oral contrast used: None. FINDINGS: Brain: Extra-axial spaces: No abnormal extra-axial fluid collections. Ventricular system: Within normal limits Cerebral parenchyma: No acute intraparenchymal hemorrhage or mass effect. The benito-white junction is well differentiated. Cerebellum: Unremarkable. Mass effect: No evidence of midline shift. Intracranial vasculature: Atherosclerotic calcifications of the intracranial vessels. Soft tissues: Normal. Calvarium/osseous structures: No depressed skull fracture. Paranasal sinuses and mastoid air cells: Mild scattered paranasal sinus disease. Visualized orbits: Orbital contents are intact. IMPRESSION: No acute intracranial process.
[2023-07-25 17:37] LABS: Basophils % (A) 0 %; Eosinophils # (A) 0.2 k/uL (0-0.7); Eosinophils % (A) 2 %; HCT 28.3 % (39.0-53.0); HGB 8.6 gm/dL (13.0-17.5); Hypochromasia Marked; Lymphocytes # (A) 1.6 k/uL (1.0-4.8); Lymphocytes % (A) 24 %; MCH 23.5 pg (25.0-35.0); MCHC 30.4 g/dL (31.0-37.0); MCV 77.2 fL (80.0-100.0); Mean Platelet Volume 7.9; Microcytosis Slight; Monocytes # (A) 0.5 k/uL (0-1.0); Monocytes % (A) 8 %; Neutrophils # (A) 4.3 k/uL (1.3-7.7); Neutrophils % (A) 63 %; Platelet Count 294 k/uL (150-450); Poikilocytosis Slight; RBC 3.67 m/uL (4.30-5.90); RDW 15.4 % (11.5-15.5); WBC 6.9 k/uL (3.8-10.6)
[2023-07-25 17:46] LABS: INR 0.9 (<1.2); Partial Thromboplastin Time 22.6 sec (22.0-30.0); Prothrombin Time 10.4 sec (10.0-12.5)
[2023-07-25] MEDS: SODIUM CHLORIDE 0.9% 1,000 ML IV STA (17:51)
[2023-07-25 17:52] LABS: ALT 30 U/L (4-49); AST 44 U/L (17-59); African American GFR (CKD) 36 (>60 ml/min/1.73 sqM); Albumin 3.9 g/dL (3.5-5.0); Alkaline Phosphatase 124 U/L (38-126); Anion Gap 8 mmol/L; Blood Urea Nitrogen 36 mg/dL (9-20); Calcium 8.6 mg/dL (8.4-10.2); Carbon Dioxide 28 mmol/L (22-30); Chloride 98 mmol/L (98-107); Creatine Kinase 58 U/L (55-170); Glucose 106 mg/dL (74-99); Non-African American GFR(CKD) 31 (>60 ml/min/1.73 sqM); Potassium 4.2 mmol/L (3.5-5.1); Sodium 134 mmol/L (137-145); Total Bilirubin 0.3 mg/dL (0.2-1.3); Total Protein 6.4 g/dL (6.3-8.2)
--- NOTE | 2023-07-25 17:59 | CT ---
EXAMINATION TYPE: CT angio head neck CT DLP: 757.5 mGycm, Automated exposure control for dose reduction was used. DATE OF EXAM: 07/25/2023 5:30 PM COMPARISON: CT brain same day. CLINICAL INDICATION:Male, 62 years old with history of Neuro deficit, acute, stroke suspected; PHH, c va TECHNIQUE: Axially acquired helical CT angiogram of the head and neck was obtained with contrast. Axi al images are supplemented with 3D reconstructions and MIP images which were post-processed at an in dependent workstation. NASCET criteria used. Contrast used:65ml mL of Isovue 370 with IV Contrast, Oral contrast used: None. FINDINGS: CTA HEAD: No evidence of acute intracranial hemorrhage, mass effect, or midline shift. The ventricles, sulci, a nd cisterns are unremarkable. The visualized portions of the internal carotid arteries, middle cerebral arteries, anterior cerebral arteries, and posterior cerebral arteries are patent. The basilar and vertebral arteries are patent. CTA NECK: Right Carotid System: The common carotid and external carotid arteries are patent. There is less than 25% stenosis at the c arotid bifurcation secondary to calcified/noncalcified plaque. The rest of the internal carotid arter y is patent. Left Carotid System: The common carotid and external carotid arteries are patent. There is less than 25% stenosis at the c arotid bifurcation secondary to calcified/noncalcified plaque. The rest of the internal carotid arter y is patent. Vertebral arteries are patent without evidence hemodynamically significant stenosis. Diminutive left vertebral artery dominant right. There is a three-vessel aortic arch. The origins of the great vessels are patent. No evidence of hemo dynamically significant stenosis. Upper thorax: Mild centrilobular emphysema changes throughout the lungs. IMPRESSION: 1. No evidence of dissection of the cervical internal carotid arteries or vertebral arteries or any e vidence of significant stenosis at the carotid bifurcations. 2. No evidence of intracranial high-grade stenosis or intracranial aneurysm.
--- NOTE | 2023-07-25 18:10 | XR ---
EXAMINATION TYPE: XR chest 2V DATE OF EXAM: 07/25/2023 5:48 PM CLINICAL INDICATION:Male, 62 years old with history of altered mental status; [facility] COMPARISON: Chest radiographs from 07/17/2023 TECHNIQUE: XR chest 2V Frontal and lateral views of the chest. FINDINGS: Lungs/Pleura: There is no evidence of pleural effusion, focal consolidation, or pneumothorax. Pulmonary vascularity: Unremarkable. Heart/mediastinum: Cardiomediastinal silhouette is enlarged and stable. Musculoskeletal: No acute osseous pathology. IMPRESSION: No acute cardiopulmonary disease/process.
[2023-07-25] MEDS: ASPIRIN 325 MG TAB PO STA (18:13)
--- NOTE | 2023-07-25 23:43 | P.HPIM ---
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 Patient notes that his symptoms started yesterday evening at around 10 PM and that he did not quite feel like himself for the rest of the night and was thereby unable to sleep. Throughout the night, he felt that he was having " jerking" movements involving his left arm causing him to throw things across the room. He also reported feeling somewhat confused and on edge. He was scheduled for a cardiac stress test earlier today and as he arrived in the clinic, they noted that he had somewhat slurred speech and that he was confused and advised him to go to the emergency room. The patient instead went home and went to bed. He woke up this afternoon and his symptoms had persisted, which prompted him to come to the emergency room. Patient does report a mild diffuse headache for the past 24 hours. Denies experiencing visual changes, facial droop. Does report chronic bilateral lower extremity weakness which is somewhat unchanged. Denies experiencing chest discomfort, shortness of breath, fever, chills, cough, nausea, vomiting, abdominal pain, diarrhea. Patient notes that he no longer has slurring of his speech but continues to have tremors especially when he is trying to focus on a task involving both his upper extremities. Of note, the patient was recently admitted to the hospital from 07/16 to 07/18 for chest pain where ACS was ruled out and the patient was noted to have iron deficiency anemia. He was given an IV iron dose but developed palpitations and chest tightness following which no iron supplementation was initiated and the patient was discharged home. The patient was started on Imdur 30 mg and losartan 50 mg at discharge. In the emergency room, a CT brain and CT angiogram of head and neck were unremarkable with chest x-ray also unremarkable. EKG revealed sinus rhythm at 77 bpm with incomplete right bundle branch block as reviewed by me. Laboratory evaluation was remarkable for hemoglobin of 8.6 (from 8.9 on discharge on 07/18), BUN 36, creatinine 2.2 (previously 0.9). ED documentation reviewed and case discussed with ED provider. Review of systems: Pertinent positives and negatives as discussed in HPI, a complete review of systems was performed and all other systems are negative. Physical examination: Vital signs reviewed General: non toxic, no distress, appears at stated age, morbidly obese Derm: no unusual rashes/lesions, warm Head: atraumatic, normocephalic, symmetric Eyes: EOMI, no lid lag, anicteric sclera, pupils equal round reactive to light ENT: Nose and ears atraumatic Neck: No cervical lymphadenopathy, trachea midline, supple Mouth: no lip lesion, mucus membranes moist Cardiovascular: S1S2 reg, no murmur, positive dorsalis pedis pulse bilateral, no edema Lungs: CTA bilateral, no rhonchi, no rales, no accessory muscle use Abdominal: soft, nontender to palpation, no guarding Ext: muscle strength 3 out of 5 of bilateral lower extremities with hyperesthesias of both legs noted, strength 5/5 of REID UEs, no gross muscle atrophy, no contractures, Neuro: CN II-XI grossly intact, no gross focal neuro deficits, Psych: Alert, oriented, appropriate affect Assessment: Dysarthria, tremors, confusion; improved, rule out CVA vs TIA Acute kidney injury, unclear etiology Iron deficiency anemia Chronic conditions: Hypertension, hyperlipidemia Imaging: In the emergency room, a CT brain and CT angiogram of head and neck were unremarkable with chest x-ray also unremarkable. EKG revealed sinus rhythm at 77 bpm with incomplete right bundle branch block as reviewed by me. Data Review: Laboratory evaluation was remarkable for hemoglobin of 8.6 (from 8.9 on discharge on 07/18), BUN 36, creatinine 2.2 (previously 0.9). Plan: Neurology consulted Fall precautions ASTRONOMY DEPARTMENT CHAIR consult PT consult Neurochecks Continue with aspirin and statin Obtain echocardiogram Cardiac monitoring Monitor BMP Continue with IV fluids normal saline 100 cc/h Hold patient's home diuretic hydrochlorothiazide at this time Resume remaining home medications DVT prophylaxis: Lovenox subcu The patient is admitted with an anticipated less than 2 midnight stay for evaluation of CVA CODE STATUS: Full Code Discussed with: Patient Anticipated discharge place: Home Past Medical History Past Medical History: COPD, GERD/Reflux, Hyperlipidemia, Hypertension, Osteoarthritis (OA), Sleep Apnea/CPAP/BIPAP Additional Past Medical History / Comment(s): Varicose veins and circulation issues. CPAP use. History of Any Multi-Drug Resistant Organisms: None Reported Past Surgical History: Back Surgery, Orthopedic Surgery Additional Past Surgical History / Comment(s): FUSION L5-S1, COLONOSCOPY, SPINAL CORD IMPLANT-LATER REMOVED, BILATERAL GREAT TOE SURGERY,. MICRODISCECTOMY, peripheral spinal cord stimulator placed and later removed. Past Anesthesia/Blood Transfusion Reactions: No Reported Reaction Past Psychological History: Anxiety, Depression Smoking Status: Former smoker Past Alcohol Use History: Occasional Past Drug Use History: Marijuana - Past Family History Father Family Medical History: Cancer Additional Family Medical History / Comment(s): COLON CANCER. Sister(s) Family Medical History: Cancer Additional Family Medical History / Comment(s): BREAST CANCER. Medications and Allergies Home Medications Medication Instructions Recorded Confirmed Type Baclofen 10 mg PO BID PRN 06/19/20 07/25/23 History Gabapentin 600 mg PO TID 06/19/20 07/25/23 History Atorvastatin Calcium [Lipitor] 80 mg PO HS 07/08/22 07/25/23 History Omeprazole 20 mg PO W/SUPPER 07/08/22 07/25/23 History carvediloL 12.5 mg PO BID 07/08/22 07/25/23 History oxyCODONE HCL [oxyCODONE HCL (IR)] 10 mg PO TID 07/08/22 07/25/23 History Isosorbide Mononitrate ER [Imdur] 30 mg PO DAILY 30 Days #30 tab 07/19/23 07/25/23 Rx Losartan [Cozaar] 50 mg PO DAILY 30 Days #30 tab 07/19/23 07/25/23 Rx Losartan [Cozaar] 25 mg PO DAILY 07/25/23 07/25/23 History Mirtazapine [Remeron] 15 mg PO HS 07/25/23 07/25/23 History Multivitamins, Thera [Multivitamin 1 tab PO DAILY 07/25/23 07/25/23 History (formulary)] Naloxone HCl [Narcan] 4 mg NASAL ONCE PRN 07/25/23 07/25/23 History Nitroglycerin Sl Tabs [Nitrostat] 0.4 mg SUBLINGUAL Q5M PRN 07/25/23 07/25/23 History hydroCHLOROthiazide [Hydrodiuril] 25 mg PO DAILY 07/25/23 07/25/23 History rOPINIRole HCL [Requip] 1 mg PO HS 07/25/23 07/25/23 History Allergies Allergy/AdvReac Type Severity Reaction Status Date / Time bupropion [From Wellbutrin] Allergy Anaphylaxis Verified 07/25/23 18:20 peanut Allergy Anaphylaxis Verified 07/25/23 18:20 devinity Allergy Swelling Uncoded 07/25/23 18:20 IV Morphine AdvReac "Caused Uncoded 07/25/23 18:20 Ileus" Physical Exam Vitals: Vital Signs Temp Pulse Resp BP Pulse Ox 07/25/23 18:15 98.6 F 82 17 124/55 94 L 07/25/23 17:57 97.8 F 85 16 119/52 95 07/25/23 17:46 98.1 F 82 16 125/54 96 07/25/23 17:27 98.9 F 84 19 118/65 94 L 07/25/23 17:12 83 18 133/66 93 L 07/25/23 16:57 82 17 134/61 92 L 07/25/23 16:42 97.9 F 86 17 121/57 94 L 07/25/23 16:09 97.9 F 83 18 113/51 93 L Intake and Output 07/25/23 07/25/23 07/26/23 14:59 22:59 06:59 Other: Weight 117.934 kg Results CBC & Chem 7: 07/26/23 02:59 07/26/23 02:59 Labs: Abnormal Lab Results - Last 24 Hours (Table) 07/25/23 07/25/23 07/25/23 Range/Units 16:38 17:30 17:30 RBC 3.67 L (4.30-5.90) m/uL Hgb 8.6 L (13.0-17.5) gm/dL Hct 28.3 L (39.0-53.0) % MCV 77.2 L (80.0-100.0) fL MCH 23.5 L (25.0-35.0) pg MCHC 30.4 L (31.0-37.0) g/dL Sodium 134 L (137-145) mmol/L BUN 36 H (9-20) mg/dL Creatinine 2.20 H (0.66-1.25) mg/dL Glucose 106 H (74-99) mg/dL POC Glucose (mg/dL) 162 H (70-110) mg/dL
[2023-07-25] MEDS: GABAPENTIN 300 MG CAP PO SCH (23:54)
[2023-07-26 03:29] LABS: HCT 28.9 % (39.0-53.0); HGB 8.6 gm/dL (13.0-17.5); Hypochromasia Marked; MCH 23.3 pg (25.0-35.0); MCHC 29.7 g/dL (31.0-37.0); MCV 78.4 fL (80.0-100.0); Mean Platelet Volume 7.6; Platelet Count 297 k/uL (150-450); RBC 3.69 m/uL (4.30-5.90); RDW 15.3 % (11.5-15.5); WBC 6.1 k/uL (3.8-10.6)
[2023-07-26 03:42] LABS: African American GFR (CKD) 57 (>60 ml/min/1.73 sqM); Anion Gap 7 mmol/L; Blood Urea Nitrogen 36 mg/dL (9-20); Calcium 8.9 mg/dL (8.4-10.2); Carbon Dioxide 29 mmol/L (22-30); Chloride 102 mmol/L (98-107); Glucose 109 mg/dL (74-99); Non-African American GFR(CKD) 49 (>60 ml/min/1.73 sqM); Potassium 4.7 mmol/L (3.5-5.1); Sodium 138 mmol/L (137-145)
--- NOTE | 2023-07-26 08:33 | US ---
EXAMINATION TYPE: US renals and bladder DATE OF EXAM: 07/26/2023 COMPARISON: US 05/05/2022 US 12/05/2020 CLINICAL INDICATION: Male, 62 years old with history of SORAIDA; Hx ARF during coma about 10 years ago; N ew onset weakness and dysphagia x 1 day. Hx HTn and Former smoker EXAM MEASUREMENTS: Right Kidney: 11.7 x 6.5 x 5.4 cm Left Kidney: 10.4 x 7.2 x 5.8 cm Post Void Residual Volume: NA mL Right Kidney: wnl Left Kidney: wnl Bladder: wnl Bilateral Jets seen: Yes Normal Post Void Residual: NA There is no evidence for hydronephrosis at this point in time. No nephrolithiasis is seen. No kailey s are identified. The urinary bladder is anechoic. Bilateral ureteral jets are seen. Increased echotexture of the liver parenchyma. IMPRESSION: 1. No evidence for obstructive uropathy. 2. Hepatic steatosis.
[2023-07-26] MEDS ORDERED: hydroCHLOROthiazide 25 MG TAB PO SCH (09:00)
[2023-07-26] MEDS ORDERED: ASPIRIN 325 MG TAB PO SCH (09:00)
[2023-07-26] MEDS: ENOXAPARIN 40 MG/0.4 ML SYRINGE SQ SCH (09:18)
[2023-07-26] MEDS: carvediloL 12.5 MG TAB PO SCH (09:18)
[2023-07-26] MEDS: MULTIVITAMINS, THERA 1 EACH TAB PO SCH (09:18)
[2023-07-26] MEDS: LOSARTAN 25 MG TAB PO SCH (09:18)
[2023-07-26] MEDS: ISOSORBIDE MONONITRATE ER 30 MG TAB.ER.24H PO SCH (09:18)
[2023-07-26] MEDS: ASPIRIN 81 MG PO SCH (09:18)
[2023-07-26] MEDS: LOSARTAN 50 MG TAB PO SCH (09:21)
--- NOTE | 2023-07-26 12:06 | P.PN ---
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 Patient notes that his symptoms started yesterday evening at around 10 PM and that he did not quite feel like himself for the rest of the night and was thereby unable to sleep. Throughout the night, he felt that he was having " jerking" movements involving his left arm causing him to throw things across the room. He also reported feeling somewhat confused and on edge. He was scheduled for a cardiac stress test earlier today and as he arrived in the clinic, they noted that he had somewhat slurred speech and that he was confused and advised him to go to the emergency room. The patient instead went home and went to bed. He woke up this afternoon and his symptoms had persisted, which prompted him to come to the emergency room. Patient does report a mild diffuse headache for the past 24 hours. Denies experiencing visual changes, facial droop. Does report chronic bilateral lower extremity weakness which is somewhat unchanged. Patient notes that he no longer has slurring of his speech but continues to have tremors especially when he is trying to focus on a task involving both his upper extremities. Of note, the patient was recently admitted to the hospital from 07/16 to 07/18 for chest pain where ACS was ruled out and the patient was noted to have iron defic iency anemia. He was given an IV iron dose but developed palpitations and chest tightness following which no iron supplementation was initiated and the patient was discharged home. The patient was started on Imdur 30 mg and losartan 50 mg at discharge. In the emergency room, a CT brain and CT angiogram of head and neck were unremarkable with chest x-ray also unremarkable. EKG revealed sinus rhythm at 77 bpm with incomplete right bundle branch block. Laboratory evaluation was remarkable for hemoglobin of 8.6 (from 8.9 on discharge on 07/18), BUN 36, creatinine 2.2 (previously 0.9). 07/25 Patient was seen and examined. No acute events overnight. Stuttering persistent. Tremors and confusion improved. CBC RBC 3.69, Hg 8.6, Hct 28/9, MCV 78.4. BMP BUN 36, Cr 1.51, glu 109. General: non toxic, no distress, appears at stated age Derm: warm, dry Head: atraumatic, normocephalic, symmetric Eyes: EOMI, no lid lag, anicteric sclera Mouth: no lip lesion, mucus membranes moist Cardiovascular: S1S2 reg, no murmur Lungs: CTA bilateral, no rhonchi, no rales , no accessory muscle use Ext: no gross muscle atrophy, no edema, no contractures Neuro: Strength 3/5 RL and LLE with hyperthesia, 5/5 RU and LUE with sensation intact to touch Psych: Alert, oriented, appropriate affect Based on my assessment of this patient, this patient meets a high complexity level of care. Dysarthria, tremors, confusion: Discussed with Dr. Cunningham. CT brain and CTA head and neck as above. MRI brain ordered. Echo 07/18/23 shows EF 55-60% with G1DD, mild MR/TR. A1c and Lipid panel ordered. ST/PT/OT consulted. Telemetry monitoring. Advanced neurochecks. Start ASA 81 mg PO QD. Continue Lipitor 80 mg PO QHS. Neurology consulted. Acute kidney injury: Improved with IVF. Obtain renal and bladder US. Iron deficiency anemia: Fe 18, TIBC 462, %sat 3.9 during previous admission. Discussed routine cancer screening including colonoscopy to be done in the outpatient setting. Chronic conditions: Hypertension, hyperlipidemia CODE STATUS: FULL DVT Prophylaxis: Lovenox GI Prophylaxis: Protonix PO Designated medical POA if patient is not able to make medical decisions for themselves: I have reviewed the following design studio consultant notes: I have reviewed the results of the following tests: Iron studies. CBC. BMP. Echocardiogram. I have ordered the following tests: Lipid panel, A1c, MRI brain is pending. Renal US ordered. I have discussed the care of this patient with the following independent historian: I have independently interpreted the following test below: I have discussed the management of this patient with the following physician: Dr. Cunningham Objective - Vital Signs Vital signs: Vital Signs Temp 98.7 F 07/26/23 06:48 Pulse 97 07/26/23 06:48 Resp 16 07/26/23 06:48 BP 126/62 07/26/23 06:48 Pulse Ox 93 L 07/26/23 06:48 FiO2 Intake & Output 07/25/23 07/26/23 07/26/23 18:59 06:59 18:59 Weight 117.934 kg - Labs CBC & Chem 7: 07/26/23 02:59 07/26/23 02:59 Labs: Abnormal Lab Results - Last 24 Hours (Table) 07/25/23 07/25/23 07/25/23 Range/Units 16:38 17:30 17:30 RBC 3.67 L (4.30-5.90) m/uL Hgb 8.6 L (13.0-17.5) gm/dL Hct 28.3 L (39.0-53.0) % MCV 77.2 L (80.0-100.0) fL MCH 23.5 L (25.0-35.0) pg MCHC 30.4 L (31.0-37.0) g/dL Sodium 134 L (137-145) mmol/L BUN 36 H (9-20) mg/dL Creatinine 2.20 H (0.66-1.25) mg/dL Glucose 106 H (74-99) mg/dL POC Glucose (mg/dL) 162 H (70-110) mg/dL 07/26/23 07/26/23 Range/Units 02:59 02:59 RBC 3.69 L (4.30-5.90) m/uL Hgb 8.6 L (13.0-17.5) gm/dL Hct 28.9 L (39.0-53.0) % MCV 78.4 L (80.0-100.0) fL MCH 23.3 L (25.0-35.0) pg MCHC 29.7 L (31.0-37.0) g/dL Sodium (137-145) mmol/L BUN 36 H (9-20) mg/dL Creatinine 1.51 H (0.66-1.25) mg/dL Glucose 109 H (74-99) mg/dL POC Glucose (mg/dL) (70-110) mg/dL
--- NOTE | 2023-07-26 13:26 | P.CNNES ---
History of Present Illness Consult date: 07/26/23 Requesting physician: Angel Hart Reason for Consult: cva History of Present Illness: This is a 62-year-old gentleman sent emergency department because of slurred speech, generalized weakness and confusion. Patient is very tangential on providing history. Patient states that yesterday he was confused and was dropping things on both sides of his hands as well as he was generalized weak and stated that he was slurring his speech. He stated that he was notified by his that he could not keep things right and was not making sense. He stated his symptoms began initially on July 23 and he was short of breath in which she had to go to outside to his deck then had neurological issues. He denies any history of stroke in the past, seizures. 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 He states he drinks 4 beers daily and there are cans and in the past he has remote sign ificant alcohol use but denies any further significant alcohol use. He is an ex-smoker and stopped smoking in 2003. He has COPD. Currently denies any focal weakness. I spoke with the patient's nurse and pulmonary team who also felt he was very tangenital. The ED team note seems to the patient was feeling off balance that had a fall without any injury and had left leg weakness. He denies any focality and he stated to me that he had generalized weakness. He denies being on any antiplatelet. Patient is on oxycodone, Zoloft, gabapentin, ropinirole, BuSpar. Some of the workup during this hospital visit consisted of: Pulm was 2.2 and the BUN is 36. CT the head is reported as no acute intracranial process. I personally reviewed the CT and I agree with the report. CT angiography of the head and neck is reported as no evidence of dissection of cervical internal carotid artery or vertebral artery or any evidence of significant stenosis at the carotid bifurcation. No evidence of intracranial high-grade stenosis or intracranial aneurysm. Patient had a recent 2D echo on 07/18/2023 and it is reported as technically difficult study with poor AccuStick window. Preserved left ventricular size and systolic function. Mildly thickened pericardium without effusion. Review of Systems The positive and negative as per HPI. Past Medical History Past Medical History: COPD, GERD/Reflux, Hyperlipidemia, Hypertension, Oste oarthritis (OA), Sleep Apnea/CPAP/BIPAP Additional Past Medical History / Comment(s): Varicose veins and circulation issues. CPAP use. History of Any Multi-Drug Resistant Organisms: None Reported Past Surgical History: Back Surgery, Orthopedic Surgery Additional Past Surgical History / Comment(s): FUSION L5-S1, COLONOSCOPY, SPINAL CORD IMPLANT-LATER REMOVED, BILATERAL GREAT TOE SURGERY,. MICRODISCECTOMY, peripheral spinal cord stimulator placed and later removed. Past Anesthesia/Blood Transfusion Reactions: No Reported Reaction Past Psychological History: Anxiety, Depression Smoking Status: Former smoker Past Alcohol Use History: Occasional Past Drug Use History: Marijuana - Past Family History Father Family Medical History: Cancer Additional Family Medical History / Comment(s): COLON CANCER. Sister(s) Family Medical History: Cancer Additional Family Medical History / Comment(s): BREAST CANCER. Medications and Allergies Home Medications Medication Instructions Recorded Confirmed Type Baclofen 10 mg PO BID PRN 06/19/20 07/25/23 History Gabapentin 600 mg PO TID 06/19/20 07/25/23 History Atorvastatin Calcium [Lipitor] 80 mg PO HS 07/08/22 07/25/23 History Omeprazole 20 mg PO W/SUPPER 07/08/22 07/25/23 History carvediloL 12.5 mg PO BID 07/08/22 07/25/23 History oxyCODONE HCL [oxyCODONE HCL (IR)] 10 mg PO TID 07/08/22 07/25/23 History Isosorbide Mononitrate ER [Imdur] 30 mg PO DAILY 30 Days #30 tab 07/19/23 07/25/23 Rx Losartan [Cozaar] 50 mg PO DAILY 30 Days #30 tab 07/19/23 07/25/23 Rx Losartan [Cozaar] 25 mg PO DAILY 07/25/23 07/25/23 History Mirtazapine [Remeron] 15 mg PO HS 07/25/23 07/25/23 History Multivitamins, Thera [Multivitamin 1 tab PO DAILY 07/25/23 07/25/23 History (formulary)] Naloxone HCl [Narcan] 4 mg NASAL ONCE PRN 07/25/23 07/25/23 History Nitroglycerin Sl Tabs [Nitrostat] 0.4 mg SUBLINGUAL Q5M PRN 07/25/23 07/25/23 History hydroCHLOROthiazide [Hydrodiuril] 25 mg PO DAILY 07/25/23 07/25/23 History rOPINIRole HCL [Requip] 1 mg PO HS 07/25/23 07/25/23 History Allergies Allergy/AdvReac Type Severity Reaction Status Date / Time bupropion [From Wellbutrin] Allergy Anaphylaxis Verified 07/25/23 18:20 peanut Allergy Anaphylaxis Verified 07/25/23 18:20 devinity Allergy Swelling Uncoded 07/25/23 18:20 IV Morphine AdvReac "Caused Uncoded 07/25/23 18:20 Ileus" Physical Examination - Vital Signs Vital Signs: Vital Signs Temp Pulse Resp BP Pulse Ox 07/26/23 06:48 98.7 F 97 16 126/62 93 L 07/26/23 04:30 95 13 119/84 93 L 07/26/23 02:31 99 15 142/57 93 L 07/26/23 01:00 100 15 148/66 93 L 07/25/23 23:00 75 16 127/61 94 L 07/25/23 22:15 74 16 108/57 93 L 07/25/23 18:15 98.6 F 82 17 124/55 94 L 07/25/23 17:57 97.8 F 85 16 119/52 95 07/25/23 17:46 98.1 F 82 16 125/54 96 07/25/23 17:27 98.9 F 84 19 118/65 94 L 07/25/23 17:12 83 18 133/66 93 L 07/25/23 16:57 82 17 134/61 92 L 07/25/23 16:42 97.9 F 86 17 121/57 94 L 07/25/23 16:09 97.9 F 83 18 113/51 93 L Intake and Output 07/25/23 07/26/23 07/26/23 22:59 06:59 14:59 Other: Weight 117.934 kg GENERAL: The patient is sitting in a chair and is not in acute distress. NEUROLOGICAL: Higher mental function: The patient is awake, alert, oriented to self, place and time. Patient is following commands. No aphasia and no neglect. Cranial nerves: The pupils are round, equal and reactive to light and accommodation. Visual lou are full to confrontation throughout. Extraocular movement is intact no nystagmus is noted. Facial sensation is normal to touch throughout. The facial strength is normal throughout. Hearing is normal bilaterally to hand rub. Tongue is midline and moved [id number] without any difficulty. No dysarthria is noted. Shoulder shrug is normal bilaterally. Motor: The strength is 5 over 5 throughout. Normal tone and bulk. Cerebellum: Normal finger to nose heel to chin bilaterally. Sensation: Sensation is normal to touch throughout. Reflexes (right/left): 2+ throughout except ankles are 1+ Plantars are downgoing bilaterally. Results - Laboratory Findings CBC and BMP: 07/26/23 02:59 07/26/23 02:59 Abnormal Lab Findings: Abnormal Labs 07/25/23 07/25/23 07/25/23 16:38 17:30 17:30 RBC 3.67 L Hgb 8.6 L Hct 28.3 L MCV 77.2 L MCH 23.5 L MCHC 30.4 L Sodium 134 L BUN 36 H Creatinine 2.20 H Glucose 106 H POC Glucose (mg/dL) 162 H 07/26/23 07/26/23 02:59 02:59 RBC 3.69 L Hgb 8.6 L Hct 28.9 L MCV 78.4 L MCH 23.3 L MCHC 29.7 L Sodium BUN 36 H Creatinine 1.51 H Glucose 109 H POC Glucose (mg/dL) Assessment and Plan Assessment: This is a 62-year-old gentleman who presented emergency department because of generalized weakness, dysarthria, confusion, he felt he was dropping things on both hands and then started on 07/24/2023. He was very tangential upon obtaining the history. He notified the ED team that he had left leg weakness and fell off balance but denies any head trauma but he denied that to me and he stated that he was generalized weak. States he drinks 4 drinks a day for alcohol and in the past used to drink much more. Acute Dysarthria, confusion, generalized weakness: Unsure exact cause. Rule out Stroke/TIA vs toxic or metabolic encephalopathy. Acute kidney injury History multiple lower back surgery and patient has for neuropathy of his feet as a result according to the patient Polypharmacy and patient is on gabapentin, baclofen, ropinirole, oxycodone Ex-tobacco use Plan: MRI of the brain is ordered and is pending Hemoglobin A1c is ordered by the primary team. I ordered TSH, vitamin B12, ammonia level, urine drug screen, alcohol level Lipid panel was ordered and is pending I ordered a routine EEG because of his transient episode of confusion which I doubt this is a seizure. Patient is on aspirin 81 mg that was started by the primary team. He was given aspirin 325 mg by the ED He is on Lipitor 80 mg nightly and from a neurologic perspective can be lowered to 40 but will defer that final decision to primary team I feel the patient is on multiple pain medication I will defer modification to his primary team as an outpatient Continue neurochecks Cardiac monitoring PT OT and AMMUNITION SUPERVISOR are consulted Start the patient on thiamine 100 mg daily Rest of the medical management the primary team For DVT prophylaxis the patient is on Lovenox The plan is discussed with patient and primary team. Thank you for the consultation. Time with Patient: Greater than 30
[2023-07-26 13:41] LABS: Chol/HDL Ratio 3.27 Ratio; LDL Cholesterol,Calculated 51.4 mg/dL (0.0-131.0)
[2023-07-26] MEDS: THIAMINE 100 MG TAB PO SCH (14:25)
[2023-07-26 15:16] LABS: Alcohol <10 mg/dL
[2023-07-26] MEDS: PANTOPRAZOLE 40 MG TABLET PO SCH (17:05)
[2023-07-26 17:15] LABS: Amphetamine Screen,Urine Not Detected (NotDetected); Barbiturate Screen,Urine Not Detected (NotDetected); Benzodiazepines Screen,Urine Not Detected (NotDetected); Cocaine Screen,Urine Not Detected (NotDetected); Methadone Screen, Urine Not Detected (NotDetected); Opiate Screen,Urine Not Detected (NotDetected); Oxycodone Screen, Urine Detected (NotDetected); Phencyclidine Screen,Urine Not Detected (NotDetected); Tricyclic Antidepressant,Urine Not Detected (NotDetected); Urn Cannabinoid Scrn Not Detected (NotDetected)
[2023-07-26] MEDS: MIRTAZAPINE 15 MG TAB PO SCH (20:37)
[2023-07-26] MEDS: ATORVASTATIN 80 MG TAB PO SCH (20:37)
--- NOTE | 2023-07-26 21:07 | EEG ---
ELECTROENCEPHALOGRAM REPORT CLINICAL HISTORY: This is a 62-year-old gentleman with altered mental status. The video EEG is obtained to evaluate for seizure epileptiform activity. RELEVANT MEDICATIONS: 1. Gabapentin. 2. Oxycodone. 3. Baclofen. EEG TYPE: This is a routine 21-channel EEG with video using the 10/20 electrode placement system. DESCRIPTION: Wakefulness and drowsiness are obtained. During awake state, the posterior-dominant rhythm consists of [id number] voltage of 9 to 9.5 hertz activity that is well modulated and well sustained. There is no physiological stage 2 sleep architecture. There is no focal slowing. Interictal and ictal is none. ACTIVATION PROCEDURE: Photic stimulation did not evoke a posterior driving response. There is no abnormality during the photic stimulation. Hyperventilation is not performed. CLINICAL INTERPRETATION: This is a normal routine EEG. There is no focal slowing, epileptiform discharge, or seizure on the EEG. A normal routine EEG does not rule out underlying epilepsy. Clinical correlation is recommended. VICTORIA / DUANEN: [id number] /
[2023-07-27] MEDS: BACLOFEN 10 MG TAB PO PRN (08:35)
[2023-07-27 10:27] LABS: African American GFR (CKD) >90 (>60 ml/min/1.73 sqM); Anion Gap 7 mmol/L; Blood Urea Nitrogen 18 mg/dL (9-20); Calcium 9.2 mg/dL (8.4-10.2); Carbon Dioxide 31 mmol/L (22-30); Chloride 97 mmol/L (98-107); Glucose 154 mg/dL (74-99); Non-African American GFR(CKD) >90 (>60 ml/min/1.73 sqM); Potassium 4.3 mmol/L (3.5-5.1); Sodium 135 mmol/L (137-145)
--- NOTE | 2023-07-27 11:42 | P.PN ---
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 Patient notes that his symptoms started yesterday evening at around 10 PM and that he did not quite feel like himself for the rest of the night and was thereby unable to sleep. Throughout the night, he felt that he was having " jerking" movements involving his left arm causing him to throw things across the room. He also reported feeling somewhat confused and on edge. He was scheduled for a cardiac stress test earlier today and as he arrived in the clinic, they noted that he had somewhat slurred speech and that he was confused and advised him to go to the emergency room. The patient instead went home and went to bed. He woke up this afternoon and his symptoms had persisted, which prompted him to come to the emergency room. Patient does report a mild diffuse headache for the past 24 hours. Denies experiencing visual changes, facial droop. Does report chronic bilateral lower extremity weakness which is somewhat unchanged. Patient notes that he no longer has slurring of his speech but continues to have tremors especially when he is trying to focus on a task involving both his upper extremities. Of note, the patient was recently admitted to the hospital from 07/16 to 07/18 for chest pain where ACS was ruled out and the patient was noted to have iron defic iency anemia. He was given an IV iron dose but developed palpitations and chest tightness following which no iron supplementation was initiated and the patient was discharged home. The patient was started on Imdur 30 mg and losartan 50 mg at discharge. In the emergency room, a CT brain and CT angiogram of head and neck were unremarkable with chest x-ray also unremarkable. EKG revealed sinus rhythm at 77 bpm with incomplete right bundle branch block. Laboratory evaluation was remarkable for hemoglobin of 8.6 (from 8.9 on discharge on 07/18), BUN 36, creatinine 2.2 (previously 0.9). 07/25 Patient was seen and examined. No acute events overnight. Stuttering persistent. Tremors and confusion improved. CBC RBC 3.69, Hg 8.6, Hct 28/9, MCV 78.4. BMP BUN 36, Cr 1.51, glu 109. 07/26 Patient was seen and examined. Stuttering improved but persistent. Tremors and confusion resolved. Renal US negative for obstructive uropathy. Ammonia < 9. A1c 6.2. Lipid panel T. Chol 123, TG 170, LDL 51.4, HDL 37.6. Folate 37.5. TSH 1.18. UDS + oxycodone. EtOH < 10. EEG negative. Awaiting MRI brain. General: non toxic, no distress, appears at stated age Derm: warm, dry Head: atraumatic, normocephalic, symmetric Eyes: EOMI, no lid lag, anicteric sclera Mouth: no lip lesion, mucus membranes moist Cardiovascular: S1S2 reg, no murmur Lungs: CTA bilateral, no rhonchi, no rales , no accessory muscle use Ext: no gross muscle atrophy, no edema, no contractures Neuro: Strength 3/5 RL and LLE with hyperthesia, 5/5 RU and LUE with sensation intact to touch Psych: Alert, oriented, appropriate affect Based on my assessment of this patient, this patient meets a high complexity level of care. Dysarthria, tremors, confusion: Discussed with Dr. Cunningham. CT brain and CTA head and neck as above. MRI brain ordered. Echo 07/18/23 shows EF 55-60% with G1DD, mild MR/TR. A1c and Lipid panel ordered. ST/PT/OT consulted. Telemetry monitoring. Advanced neurochecks. Start ASA 81 mg PO QD. Continue Lipitor 80 mg PO QHS. Neurology consulted. Acute kidney injury: Improved with IVF. Renal and bladder US negative. Diabetes mellitus: A1c 6.2. New onset. Outpatient management. Iron deficiency anemia: Fe 18, TIBC 462, %sat 3.9 during previous admission. Discussed routine cancer screening including colonoscopy to be done in the outpatient setting. Chronic conditions: Hypertension, hyperlipidemia CODE STATUS: FULL DVT Prophylaxis: Lovenox GI Prophylaxis: Protonix PO Designated medical POA if patient is not able to make medical decisions for themselves: I have reviewed the following senior consumer insights consultant notes: Neurology I have reviewed the results of the following tests: Lipid panel. A1c. Ammonia. UDS. EEG. EtOH. TSH. Renal US. I have ordered the following tests: MRI brain is pending. I have discussed the care of this patient with the following independent historian: I have independently interpreted the following test below: I have discussed the management of this patient with the following physician: Dr. Cunningham Objective - Vital Signs Vital signs: Vital Signs Temp 98.7 F 07/26/23 06:48 Pulse 81 07/27/23 05:44 Resp 18 07/27/23 05:44 BP 122/60 07/27/23 05:44 Pulse Ox 92 L 07/27/23 05:44 FiO2 - Labs CBC & Chem 7: 07/26/23 02:59 07/27/23 09:15 Labs: Abnormal Lab Results - Last 24 Hours (Table) 07/26/23 07/26/23 07/26/23 Range/Units 02:59 02:59 14:17 Hemoglobin A1c 6.2 H (<=6.0) % Triglycerides 170.00 H (0.00-149.00) mg/dL HDL Cholesterol 37.60 L (40.00-60.00) mg/dL Folate 37.50 H (4.40-31.00) ng/mL Ur Oxycodone Screen (NotDetected) 07/26/23 Range/Units 16:59 Hemoglobin A1c (<=6.0) % Triglycerides (0.00-149.00) mg/dL HDL Cholesterol (40.00-60.00) mg/dL Folate (4.40-31.00) ng/mL Ur Oxycodone Screen Detected H (NotDetected)
[2023-07-27 12:10] LABS: Glucose,Whole Blood 172 mg/dL (70-110)
--- NOTE | 2023-07-27 14:20 | P.PN ---
Subjective Progress Note Date: 07/27/23 I am following-up with patient and he feels he is doing better. Denies any new neurological issues. No further confusion. He is pending to have MRI Brain. Objective - Vital Signs Vital signs: Vital Signs Temp 97.9 F 07/27/23 12:25 Pulse 72 07/27/23 12:25 Resp 17 07/27/23 12:25 BP 100/58 07/27/23 12:25 Pulse Ox 94 L 07/27/23 12:25 FiO2 - Exam GENERAL: The patient is lying in bed and is not in acute distress. NEUROLOGICAL: Higher mental function: The patient is awake, alert, oriented to self, place and time. Patient is following commands. No aphasia and no neglect. Cranial nerves: The pupils are round, equal and reactive to light and accommodation. Visual lou are full to confrontation throughout. Extraocular movement is intact no nystagmus is noted. Facial sensation is normal to touch throughout. The facial strength is normal throughout. Hearing is normal bilaterally to hand rub. Tongue is midline and moved [id number] without any difficulty. No dysarthria is noted. Shoulder shrug is normal bilaterally. Motor: The strength is 5 over 5 throughout. Normal tone and bulk. Cerebellum: Normal finger to nose heel to chin bilaterally. Sensation: Sensation is normal to touch throughout. Some of the workup during this hospital visit consisted of: Pulm was 2.2 and the BUN is 36. TSH: 1.180 Serum folate: 37.50 Ammonia <9 HbA1c: 6.2 UDS: Positive for Oxycodone. Otherwise negative. Serum alcohol <10. CT the head is reported as no acute intracranial process. I personally reviewed the CT and I agree with the report. CT angiography of the head and neck is reported as no evidence of dissection of cervical internal carotid artery or vertebral artery or any evidence of significant stenosis at the carotid bifurcation. No evidence of intracranial high-grade stenosis or intracranial aneurysm. Routine EEG: Normal. - Labs CBC & Chem 7: 07/26/23 02:59 07/27/23 09:15 Labs: Abnormal Lab Results - Last 24 Hours (Table) 07/26/23 07/26/23 07/26/23 Range/Units 02:59 14:17 16:59 Sodium (137-145) mmol/L Chloride (98-107) mmol/L Carbon Dioxide (22-30) mmol/L Glucose (74-99) mg/dL POC Glucose (mg/dL) (70-110) mg/dL Hemoglobin A1c 6.2 H (<=6.0) % Folate 37.50 H (4.40-31.00) ng/mL Ur Oxycodone Screen Detected H (NotDetected) 07/27/23 07/27/23 Range/Units 09:15 12:09 Sodium 135 L (137-145) mmol/L Chloride 97 L (98-107) mmol/L Carbon Dioxide 31 H (22-30) mmol/L Glucose 154 H (74-99) mg/dL POC Glucose (mg/dL) 172 H (70-110) mg/dL Hemoglobin A1c (<=6.0) % Folate (4.40-31.00) ng/mL Ur Oxycodone Screen (NotDetected) Assessment and Plan Assessment: This is a 62-year-old gentleman who presented emergency department because of generalized weakness, dysarthria, confusion, he felt he was dropping things on both hands and then started on 07/24/2023. He was very tangential upon obtaining the history. He notified the ED team that he had left leg weakness and fell off balance but denies any head trauma but he denied that to me and he stated that he was generalized weak. States he drinks 4 drinks a day for a lcohol and in the past used to drink much more. Acute transient Dysarthria, confusion, generalized weakness: Unsure exact cause. Rule out Stroke/TIA vs toxic or metabolic encephalopathy. Routine EEG is normal. Acute kidney injury Prediabetic (HbA1c 6.2) History multiple lower back surgery and patient has for neuropathy of his feet as a result according to the patient Polypharmacy and patient is on gabapentin, baclofen, ropinirole, oxycodone Ex-tobacco use Plan: MRI of the brain is pending Pending B12 level. Patient is on aspirin 81 mg that was started by the primary team. He was given aspirin 325 mg by the ED He is on Lipitor 80 mg nightly and from a neurologic perspective can be lowered to 40 but will defer that final decision to primary team I feel the patient is on multiple pain medication I will defer modification to his primary team as an outpatient Continue neurochecks Cardiac monitoring PT OT and INSURANCE TERRITORY MANAGER are consulted Continue thiamine 100 mg daily Rest of the medical management the primary team For DVT prophylaxis the patient is on Lovenox The plan is discussed with patient and primary team. Time with Patient: Less than 30
--- NOTE | 2023-07-27 16:02 | MR ---
EXAMINATION TYPE: MR brain wo con DATE OF EXAM: 07/27/2023 COMPARISON: CT brain CT brain 07/25/2023 HISTORY: R/O CVA CONTRAST: Performed utilizing 0 mL intravenous Gadavist gadolinium contrast. TECHNIQUE: Multiplanar, multiecho imaging on a 3.0 Sally magnet is performed through the brain. Stud y is not performed within 24 hours of arrival to the hospital. The craniovertebral junction is normal. The pituitary is normal. Diffusion-weighted imaging is performed. No abnormal hyperintensity is present to suggest an acute i ntracranial infarct or acute ischemic change. There are scattered punctate areas of hyperintensity on T2 and Inversion Recovery weighted sequences which are non-specific but can be related to microvascular ischemic changes. Ventricles and sulci are appropriate for the patient age. IMPRESSION: 1. No suspicious acute intracranial process.
[2023-07-28 11:42] VITALS: BP 111/56; RESP 18; TEMP 97.4
[2023-07-28] MEDS: FUROSEMIDE 10 MG/ML 4 ML VIAL IV STA (11:42)
[2023-07-28] MEDS: IPRATROPIUM-ALBUTEROL 3 ML NEB INHALATION STA (12:04)
[2023-07-28 12:16] VITALS: PULSE 80
--- NOTE | 2023-07-28 15:27 | P.DS ---
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 Patient notes that his symptoms started yesterday evening at around 10 PM and that he did not quite feel like himself for the rest of the night and was thereby unable to sleep. Throughout the night, he felt that he was having " jerking" movements involving his left arm causing him to throw things across the room. He also reported feeling somewhat confused and on edge. He was scheduled for a cardiac stress test earlier today and as he arrived in the clinic, they noted that he had somewhat slurred speech and that he was confused and advised him to go to the emergency room. The patient instead went home and went to bed. He woke up this afternoon and his symptoms had persisted, which prompted him to come to the emergency room. Patient does report a mild diffuse headache for the past 24 hours. Denies experiencing visual changes, facial droop. Does report chronic bilateral lower extremity weakness which is somewhat unchanged. Patient notes that he no longer has slurring of his speech but continues to have tremors especially when he is trying to focus on a task involving both his upper extremities. Of note, the patient was recently admitted to the hospital from 07/16 to 07/18 for chest pain where ACS was ruled out and the patient was noted to have iron deficiency anemia. He was given an IV iron dose but developed palpitations and chest tightness following which no iron supplementation was initiated and the patient was discharged home. The patient was started on Imdur 30 mg and losartan 50 mg at discharge. In the emergency room, a CT brain and CT angiogram of head and neck were unrema rkable with chest x-ray also unremarkable. EKG revealed sinus rhythm at 77 bpm with incomplete right bundle branch block. Laboratory evaluation was remarkable for hemoglobin of 8.6 (from 8.9 on discharge on 6/11), BUN 36, creatinine 2.2 (previously 0.9). 07/25 Patient was seen and examined. No acute events overnight. Stuttering persistent. Tremors and confusion improved. CBC RBC 3.69, Hg 8.6, Hct 28/9, MCV 78.4. BMP BUN 36, Cr 1.51, glu 109. 07/26 Patient was seen and examined. Stuttering improved but persistent. Tremors and confusion resolved. Renal US negative for obstructive uropathy. Ammonia < 9. A1c 6.2. Lipid panel T. Chol 123, TG 170, LDL 51.4, HDL 37.6. Folate 37.5. TSH 1.18. UDS + oxycodone. EtOH < 10. EEG negative. Awaiting MRI brain. 07/27 Patient was seen and examined. Patient reports stuttering is chronic and back to baseline. Tremors have improved. No more confusion. MRI brain negative for CVA. Discussed with Dr. Cunningham, cleared for discharge on ASA 81 mg PO QD. He does have some wheezing and 1+ edema on physical exam, he will be given a dose of Lasix 40 mg IV and DuoNeb treatment prior to discharge. Continue Lasix 20 mg PO QD at home. Follow up with PCP within 1-2 days of discharge (DM management, routine cancer screening regarding iron def anemia). General: non toxic, no distress, appears at stated age Derm: warm, dry Head: atraumatic, normocephalic, symmetric Eyes: EOMI, no lid lag, anicteric sclera Mouth: no lip lesion, mucus membranes moist Cardiovascular: S1S2 reg, no murmur Lungs: Mild expiratory wheezing bilateral, no rhonchi, no rales , no accessory muscle use Ext: no gross muscle atrophy, 1+ edema, no contractures Neuro: Strength 3/5 RL and LLE with hyperthesia, 5/5 RU and LUE with sensation intact to touch Psych: Alert, oriented, appropriate affect Discharge Diagnosis: Dysarthria, tremors, confusion Acute kidney injury Diabetes mellitus Iron deficiency anemia Chronic conditions: Hypertension, hyperlipidemia This complex discharge took 35 minutes to complete. Patient Condition at Discharge: Stable Plan - Discharge Summary Discharge Rx Participant: Yes New Discharge Prescriptions: New Aspirin 81 mg PO DAILY #30 tab Furosemide [Lasix] 20 mg PO DAILY #30 tab Continue oxyCODONE HCL [oxyCODONE HCL (IR)] 10 mg PO TID carvediloL 12.5 mg PO BID Omeprazole 20 mg PO W/SUPPER Isosorbide Mononitrate ER [Imdur] 30 mg PO DAILY 30 Days #30 tab hydroCHLOROthiazide [Hydrodiuril] 25 mg PO DAILY Mirtazapine [Remeron] 15 mg PO HS Naloxone HCl [Narcan] 4 mg NASAL ONCE PRN PRN Reason: overdose Baclofen 10 mg PO BID PRN PRN Reason: Muscle Spasm Gabapentin 600 mg PO TID Atorvastatin Calcium [Lipitor] 80 mg PO HS Losartan [Cozaar] 50 mg PO DAILY 30 Days #30 tab Losartan [Cozaar] 25 mg PO DAILY Nitroglycerin Sl Tabs [Nitrostat] 0.4 mg SUBLINGUAL Q5M PRN PRN Reason: Chest Pain rOPINIRole HCL [Requip] 1 mg PO HS Multivitamins, Thera [Multivitamin (formulary)] 1 tab PO DAILY Discharge Medication List Baclofen 10 mg PO BID PRN 06/19/20 [History] Gabapentin 600 mg PO TID 06/19/20 [History] Atorvastatin Calcium [Lipitor] 80 mg PO HS 07/08/22 [History] Omeprazole 20 mg PO W/SUPPER 07/08/22 [History] carvediloL 12.5 mg PO BID 07/08/22 [History] oxyCODONE HCL [oxyCODONE HCL (IR)] 10 mg PO TID 07/08/22 [History] Isosorbide Mononitrate ER [Imdur] 30 mg PO DAILY 30 Days #30 tab 07/19/23 [Rx] Losartan [Cozaar] 50 mg PO DAILY 30 Days #30 tab 07/19/23 [Rx] Losartan [Cozaar] 25 mg PO DAILY 07/25/23 [History] Mirtazapine [Remeron] 15 mg PO HS 07/25/23 [History] Multivitamins, Thera [Multivitamin (formulary)] 1 tab PO DAILY 07/25/23 [His tory] Naloxone HCl [Narcan] 4 mg NASAL ONCE PRN 07/25/23 [History] Nitroglycerin Sl Tabs [Nitrostat] 0.4 mg SUBLINGUAL Q5M PRN 07/25/23 [History] hydroCHLOROthiazide [Hydrodiuril] 25 mg PO DAILY 07/25/23 [History] rOPINIRole HCL [Requip] 1 mg PO HS 07/25/23 [History] Aspirin 81 mg PO DAILY #30 tab 07/28/23 [Rx] Furosemide [Lasix] 20 mg PO DAILY #30 tab 07/28/23 [Rx] Follow up Appointment(s)/Referral(s): [facility],Clinic [Primary Care Provider] - 08/04/23 1:00 pm Patient Instructions/Handouts: Type 2 Diabetes in Adults: New Diagnosis (DC), Edema (DC), Stroke (DC), Type 2 Diabetes Management for Adults (DC) Activity/Diet/Wound Care/Special Instructions: You can get a Glucometer from [facility], please stop there on way home. Discharge Disposition: HOME SELF-CARE
== END 2023-07-28 12:56 | disposition home or self-care (01) ==
LOC: EC 16:03 → 3SCARD 18:09
PROVIDERS: ADMIT Student in an Organized Health Care Education/Training Program; ATTEND Student in an Organized Health Care Education/Training Program
DX: R47.1 Dysarthria and anarthria (principal); R25.1 Tremor, unspecified; R41.0 Disorientation, unspecified; N17.9 Acute kidney failure, unspecified; D50.9 Iron deficiency anemia, unspecified; E11.40 Type 2 diabetes mellitus with diabetic neuropathy, unspecified; E78.5 Hyperlipidemia, unspecified; I10 Essential (primary) hypertension; G47.30 Sleep apnea, unspecified; K21.9 Gastro-esophageal reflux disease without esophagitis; J44.9 Chronic obstructive pulmonary disease, unspecified; F32.A Depression, unspecified; F41.9 Anxiety disorder, unspecified; Z98.890 Other specified postprocedural states; Z87.891 Personal history of nicotine dependence; Z79.899 Other long term (current) drug therapy; Z88.5 Allergy status to narcotic agent
CPT/HCPCS: 96374; 96361; 96372; 99285; 36415; 94640; 95816; 93005; 97161; 97166; 92523; 80061; 80053; 80048 ×2; 84443; 82607; 82140; 82550; 82746; 85025; 85027; 85610; 85730; 80306; 80320; 83036; 71046; 76770; 70496; 70450; 70498; 70551; G0378 ×4; J1940; J1650; Q9967

== ENCOUNTER 2023-08-22 17:38 | Emergency (ER) | payer OTHER, MEDICARE ==
[2023-08-22 18:07] VITALS: BP 119/72; PULSE 64; RESP 18; TEMP 98
--- NOTE | 2023-08-22 18:08 | ED ---
General Adult HPI - General Source: patient, RN notes reviewed <Denice Sommer - Last Filed: 08/22/23 18:05> - General Source: patient, RN notes reviewed, old records reviewed <Bravo Salazar - Last Filed: 08/23/23 01:30> - General Stated complaint: SHAD Time Seen by Provider: 08/22/23 17:52 - History of Present Illness Initial comments: Quick Note- This is a 62 year old male emergency room chief complaint of lower extremity edema and shortness of breath has been worsening over the past few days. Patient states that he was started on continuous oxygen therapy 2 days ago diagnosis of COPD. He denies personal history of VT, CVA. no blood thinner use (Denice Sommer) Patient originally seen as a quick note. Patient is a 62-year-old male with history of for chronic hypoxic respiratory failure on baseline 2 L nasal cannula oxygen, COPD, CHF. Recently started on home oxygen. States he has noticed worsening shortness of breath, as well as a productive cough. Denies any chest pain. Denies abdominal pain, nausea, vomiting. Denies any fevers or chills. No known sick contacts. Presented for further evaluation. I evaluated patient in triage after workup was completed. (Bravo Salazar) - Related Data Home Medications Medication Instructions Recorded Confirmed Baclofen 10 mg PO BID PRN 06/19/20 07/25/23 Gabapentin 600 mg PO TID 06/19/20 07/25/23 Atorvastatin Calcium [Lipitor] 80 mg PO HS 07/08/22 07/25/23 Omeprazole 20 mg PO W/SUPPER 07/08/22 07/25/23 carvediloL 12.5 mg PO BID 07/08/22 07/25/23 oxyCODONE HCL [oxyCODONE HCL (IR)] 10 mg PO TID 07/08/22 07/25/23 Losartan [Cozaar] 25 mg PO DAILY 07/25/23 07/25/23 Mirtazapine [Remeron] 15 mg PO HS 07/25/23 07/25/23 Multivitamins, Thera [Multivitamin 1 tab PO DAILY 07/25/23 07/25/23 (formulary)] Naloxone HCl [Narcan] 4 mg NASAL ONCE PRN 07/25/23 07/25/23 Nitroglycerin Sl Tabs [Nitrostat] 0.4 mg SUBLINGUAL Q5M PRN 07/25/23 07/25/23 hydroCHLOROthiazide [Hydrodiuril] 25 mg PO DAILY 07/25/23 07/25/23 rOPINIRole HCL [Requip] 1 mg PO HS 07/25/23 07/25/23 Previous Rx's Medication Instructions Recorded Isosorbide Mononitrate ER [Imdur] 30 mg PO DAILY 30 Days #30 tab 07/19/23 Losartan [Cozaar] 50 mg PO DAILY 30 Days #30 tab 07/19/23 Aspirin 81 mg PO DAILY #30 tab 07/28/23 Furosemide [Lasix] 20 mg PO DAILY #30 tab 07/28/23 Albuterol Inhaler [Ventolin Hfa 2 puff INHALATION Q6H PRN #1 each 08/22/23 Inhaler] Azithromycin [Zithromax] 250 mg PO DAILY 4 Days #4 tab 08/22/23 predniSONE [Deltasone] 40 mg PO DAILY 5 Days #10 tab 08/22/23 Allergies Allergy/AdvReac Type Severity Reaction Status Date / Time bupropion [From Wellbutrin] Allergy Anaphylaxis Verified 08/22/23 18:07 peanut Allergy Anaphylaxis Verified 08/22/23 18:07 devinity Allergy Swelling Uncoded 08/22/23 18:07 IV Morphine AdvReac "Caused Uncoded 08/22/23 18:07 Ileus" Review of Systems ROS Other: All systems not noted in ROS Statement are negative. <Denice Sommer - Last Filed: 08/22/23 18:05> ROS Other: All systems not noted in ROS Statement are negative. <Bravo Salazar - Last Filed: 08/23/23 01:30> ROS Statement: Those systems with pertinent positive or pertinent negative responses have been documented in the HPI. Review of Systems: CONST: Denies fever EYES: Denies blurry vision ENT: Denies nasal congestion C/V: Denies Chest pain RESP: Endorses cough, shortness of breath GI: Denies abdominal pain : Denies dysuria SKIN: Denies rash. MSK: Denies joint pain. NEURO: Denies headache (Bravo Salazar) Past Medical History Past Medical History: COPD, Hyperlipidemia, Hypertension, Osteoarthritis (OA), Sleep Apnea/CPAP/BIPAP Additional Past Medical History / Comment(s): Varicose veins and circulation issues. CPAP use. History of Any Multi-Drug Resistant Organisms: None Reported Past Surgical History: Back Surgery, Orthopedic Surgery Additional Past Surgical History / Comment(s): FUSION L5-S1, COLONOSCOPY, SPINAL CORD IMPLANT-LATER REMOVED, BILATERAL GREAT TOE SURGERY,. MICRODISCECTOMY, peripheral spinal cord stimulator placed and later removed. Past Anesthesia/Blood Transfusion Reactions: No Reported Reaction Past Psychological History: Anxiety, Depression, PTSD Smoking Status: Former smoker Past Alcohol Use History: Occasional Additional Past Alcohol Use History / Comment(s): QUIT SMOKING IN 2003. On average, drinks 3-4 beers daily. Additional Drug Use History / Comment(s): tried CBD for pain, did not work- stoppped taking - Past Family History Father Family Medical History: Cancer Additional Family Medical History / Comment(s): COLON CANCER. Sister(s) Family Medical History: Cancer Additional Family Medical History / Comment(s): BREAST CANCER. <Denice Sommer - Last Filed: 08/22/23 18:05> General Exam <Denice Sommer - Last Filed: 08/22/23 18:05> <Bravo Salazar - Last Filed: 08/23/23 01:30> - General Exam Comments Initial Comments: Visual Physical Exam Vital signs reviewed General: Well-appearing, nontoxic, no acute distress. Head: Normocephalic, atraumatic Eyes: PERRLA, EOMI ENT: Airway patent Chest: Nonlabored breathing Skin: No visual rash, normal skin tone Neuro: Alert and oriented 3 Musculoskeletal: No gross abnormalities (Denice Sommer) General: Appears in no acute distress. HEAD: Normal with no signs of head trauma. EYES: PERRLA, EOMI, conjunctiva normal, no discharge. ENT: Hearing grossly intact, normal oropharynx. RESPIRATORY: Bilateral end expiratory wheezing. No significant increased work of breathing. Normoxic on his normal 2 L nasal cannula oxygen. C/V: Regular rate and rhythm. S1 and S2 auscultated, bilateral lower extremity pitting edema, peripheral pulses 2+ and intact throughout ABD: Abd is soft, nontender, nondistended EXT: Normal range of motion, no obvious deformity SKIN: No rashes or lesions observed on exposed skin. NEURO: Alert and oriented x 4. Cranial nerves II-XII intact. No focal sensory or strength deficits. (Bravo Salazar) Course Vital Signs 08/22/23 18:05 Temperature 98.0 F Pulse Rate 64 Respiratory 18 Rate Blood Pressure 119/72 O2 Sat by Pulse 95 Oximetry Medical Decision Making <Denice Sommer - Last Filed: 08/22/23 18:05> - Lab Data Result diagrams: 08/22/23 18:16 08/22/23 18:16 - EKG Data -: EKG Interpreted by Me <Bravo Salazar - Last Filed: 08/23/23 01:30> - Medical Decision Making I completed the quick note portion of this chart signed Denice Sommer PA-C (Denice Sommer) Was pt. sent in by a medical professional or institution (DARY Simon, RECYCLING OR RUBBISH COLLECTOR, urgent care, hospital, or fci...) When possible be specific @ -No Did you speak to anyone other than the patient for history (EMS, parent, family, police, friend...)? What history was obtained from this source @ -No Did you review nursing and triage notes (agree or disagree)? Why? @ -I reviewed and agree with nursing and triage notes Were old charts reviewed (outside hosp., previous admission, EMS record, old EKG, old radiological studies, urgent care reports/EKG's, fci records)? Report findings @ -Old charts reviewed including EKGs. Most recent chart reviewed was from July 25, 2023. No obvious acute findings on EKG. Differential Diagnosis (chest pain, altered mental status, abdominal pain women, abdominal pain men, vaginal bleeding, weakness, fever, dyspnea, syncope, head ache, dizziness, GI bleed, back pain, seizure, CVA, palpatations, mental health, musculoskeletal)? @ -Differential Dyspnea: Coronary syndrome, arrhythmia, tamponade, asthma, COPD, pulmonary embolism, pneumonia, pneumothorax, pulmonary effusion, anaphylaxis, diabetic ketoacidosis, flailed chest, pulmonary contusion, diaphragmatic rupture, anemia, neuromuscular, this is not meant to be an all-inclusive list. EKG interpreted by me (3pts min.). @ -As above X-rays interpreted by me (1pt min.). @ -Chest x-ray shows findings more suggestive of bronchitis. Radiology also concern for possible mild CHF exacerbation. CT interpreted by me (1pt min.). @ -None done U/S interpreted by me (1pt. min.). @ -None done What testing was considered but not performed or refused? (CT, X-rays, U/S, labs)? Why? @ -None What meds were considered but not given or refused? Why? @ -None Did you discuss the management of the patient with other professionals (professionals i.e. , PA, RECYCLING OR RUBBISH COLLECTOR, lab, RT, psych nurse, social service director, tester vibrator equipment, teacher, chief environmental commitment officer, shoe caser)? Give summary @ -No Was smoking cessation discussed for >3mins.? @ -No Was critical care preformed (if so, how long)? @ -No Were there social determinants of health that impacted care today? How? (Homelessness, low income, unemployed, alcoholism, drug addiction, transportation, low edu. Level, literacy, decrease access to med. care, care home, rehab)? @ -No Was there de-escalation of care discussed even if they declined (Discuss DNR or withdrawal of care, Hospice)? DNR status @ -No What co-morbidities impacted this encounter? (DM, HTN, Smoking, COPD, CAD, Cancer, CVA, ARF, Chemo, Hep., AIDS, mental health diagnosis, sleep apnea, morbid obesity)? @ -COPD, CHF Was patient admitted / discharged? Hospital course, mention meds given and route, prescriptions, significant lab abnormalities, going to OR and other pertinent info. @ -Based on patient's presentation and physical exam, presents emergency department for shortness of breath. Originally seen as a quick note. Workup has been completed. Has chronic hypoxic respiratory failure. On exam, appears to be mostly from COPD at this time. Does have some mild worsening CHF symptoms however BNP is within normal limits and chest x-ray is unremarkable in terms of pulmonary vascular congestion. Workup also remarkable for undetectable troponin. Patient has chronic anemia. No evidence of pneumonia. Appears to have bronchitis on x-ray. EKG shows no signs of acute ischemia. At this time I did update the patient and evaluated him and triage. I did offer a breathing treatment as well as possible observation admission however patient has normal vital signs on his normal 2 L nasal cannula oxygen. He has breathing treatments at home. He would like to go home. I believe this is reasonable. I did recommend strict return precautions as well as follow-up with his PCP in the next few days. He was in agreement this plan will contact them in the morning. He states he only came because they recommended he come here and they were unable to evaluate him today. Has been waiting for multiple hours. He will be treated for COPD exacerbation with IV steroids. Declines a breathing treatment. Patient will be given a Z-Enrique for tracheobronchitis. Patient was in agreement this plan. I will provide the patient with a prescription for prednisone, azithromycin. I instructed the patient to follow up with their PCP in the next 1-3 days.. I explained that the patient should return to the emergency department if they experience any worsening symptoms. Strict return precautions were discussed with the patient. The patient expressed understanding of these instructions. I answered all questions that the patient had. The patient was discharged home in good condition with their prescriptions and follow up information. Undiagnosed new problem with uncertain prognosis? @ -No Drug Therapy requiring intensive monitoring for toxicity (Heparin, Nitro, Insulin, Cardizem)? @ -No Were any procedures done? @ -No Diagnosis/symptom? @ -COPD, tracheobronchitis Acute, or Chronic, or Acute on Chronic? @ -Acute on chronic Uncomplicated (without systemic symptoms) or Complicated (systemic symptoms)? @ -Complicated Side effects of treatment? @ -No Exacerbation, Progression, or Severe Exacerbation? @ -No Poses a threat to life or bodily function? How? (Chest pain, USA, VT, pneumonia, PE, COPD, DKA, ARF, appy, cholecystitis, CVA, Diverticulitis, Homicidal, Rene icidal, threat to staff... and all critical care pts) @ -Unlikely (Bravo Salazar) - Lab Data Lab Results 08/22/23 08/22/23 08/22/23 Range/Units 18:16 18:16 18:16 WBC 6.1 (3.8-10.6) k/uL RBC 3.81 L (4.30-5.90) m/uL Hgb 8.8 L (13.0-17.5) gm/dL Hct 30.1 L (39.0-53.0) % MCV 79.0 L (80.0-100.0) fL MCH 23.0 L (25.0-35.0) pg MCHC 29.2 L (31.0-37.0) g/dL RDW 18.2 H (11.5-15.5) % Plt Count 218 (150-450) k/uL MPV 7.5 Neutrophils % 60 % Lymphocytes % 25 % Monocytes % 7 % Eosinophils % 4 % Basophils % 1 % Neutrophils # 3.7 (1.3-7.7) k/uL Lymphocytes # 1.6 (1.0-4.8) k/uL Monocytes # 0.4 (0-1.0) k/uL Eosinophils # 0.3 (0-0.7) k/uL Basophils # 0.1 (0-0.2) k/uL Hypochromasia Marked Anisocytosis Slight Microcytosis Slight PT 12.0 (10.0-12.5) sec INR 1.1 (<1.2) APTT 24.7 (22.0-30.0) sec Sodium 137 (137-145) mmol/L Potassium 4.4 (3.5-5.1) mmol/L Chloride 99 (98-107) mmol/L Carbon Dioxide 34 H (22-30) mmol/L Anion Gap 4 mmol/L BUN 17 (9-20) mg/dL Creatinine 0.81 (0.66-1.25) mg/dL Est GFR (CKD-EPI)AfAm >90 (>60 ml/min/1.73 sqM) Est GFR (CKD-EPI)NonAf >90 (>60 ml/min/1.73 sqM) Glucose 85 (74-99) mg/dL Calcium 8.9 (8.4-10.2) mg/dL Magnesium 1.9 (1.6-2.3) mg/dL Total Bilirubin 0.7 (0.2-1.3) mg/dL AST 39 (17-59) U/L ALT 27 (4-49) U/L Alkaline Phosphatase 97 (38-126) U/L Troponin I (0.000-0.034) ng/mL NT-Pro-B Natriuret Pep 92 pg/mL Total Protein 6.6 (6.3-8.2) g/dL Albumin 4.0 (3.5-5.0) g/dL 08/22/23 Range/Units 18:16 WBC (3.8-10.6) k/uL RBC (4.30-5.90) m/uL Hgb (13.0-17.5) gm/dL Hct (39.0-53.0) % MCV (80.0-100.0) fL MCH (25.0-35.0) pg MCHC (31.0-37.0) g/dL RDW (11.5-15.5) % Plt Count (150-450) k/uL MPV Neutrophils % % Lymphocytes % % Monocytes % % Eosinophils % % Basophils % % Neutrophils # (1.3-7.7) k/uL Lymphocytes # (1.0-4.8) k/uL Monocytes # (0-1.0) k/uL Eosinophils # (0-0.7) k/uL Basophils # (0-0.2) k/uL Hypochromasia Anisocytosis Microcytosis PT (10.0-12.5) sec INR (<1.2) APTT (22.0-30.0) sec Sodium (137-145) mmol/L Potassium (3.5-5.1) mmol/L Chloride (98-107) mmol/L Carbon Dioxide (22-30) mmol/L Anion Gap mmol/L BUN (9-20) mg/dL Creatinine (0.66-1.25) mg/dL Est GFR (CKD-EPI)AfAm (>60 ml/min/1.73 sqM) Est GFR (CKD-EPI)NonAf (>60 ml/min/1.73 sqM) Glucose (74-99) mg/dL Calcium (8.4-10.2) mg/dL Magnesium (1.6-2.3) mg/dL Total Bilirubin (0.2-1.3) mg/dL AST (17-59) U/L ALT (4-49) U/L Alkaline Phosphatase (38-126) U/L Troponin I <0.012 (0.000-0.034) ng/mL NT-Pro-B Natriuret Pep pg/mL Total Protein (6.3-8.2) g/dL Albumin (3.5-5.0) g/dL - EKG Data EKG Comments: 12-lead Electrocardiogram Interpretation Note EKG was reviewed and interpreted by myself. 12-lead ECG performed at 1834 is interpreted by me as revealing normal sinus rhythm at a rate of 65 beats per minute. [place] is normal. [place] interval is 174 ms, QRS durations 90 ms, QTc is 405 ms.. There were no ST or T wave abnormalities to suggest myocardial ischemia or injury. R wave progression across the precordium was satisfactory. By my interpretation this EKG is non-diagnostic for acute ischemia. (Bravo Salazar) Disposition <Denice Sommer - Last Filed: 08/22/23 18:05> Is patient prescribed a controlled substance at d/c from ED?: No Time of Disposition: 23:54 <Bravo Salazar - Last Filed: 08/23/23 01:30> Clinical Impression: COPD (chronic obstructive pulmonary disease), Tracheobronchitis Disposition: HOME SELF-CARE Condition: Fair Instructions (If sedation given, give patient instructions): Acute Bronchitis (ED), COPD (Chronic Obstructive Pulmonary Disease) (ED) Prescriptions: predniSONE [Deltasone] 40 mg PO DAILY 5 Days #10 tab Albuterol Inhaler [Ventolin Hfa Inhaler] 2 puff INHALATION Q6H PRN #1 each PRN Reason: Dyspnea Azithromycin [Zithromax] 250 mg PO DAILY 4 Days #4 tab Referrals: [facility],Clinic [Primary Care Provider] - 1-2 days
--- NOTE | 2023-08-22 18:54 | XR ---
EXAMINATION TYPE: XR chest 2V DATE OF EXAM: 08/22/2023 COMPARISON: 07/25/2023 HISTORY: 62-year-old male difficulty in breathing, shortness of breath TECHNIQUE: PA and lateral views FINDINGS: Heart borderline enlarged. Mild interstitial density. No consolidation or pleural effusion. IMPRESSION: Bordering cardiomegaly and interstitial prominence. Consider mild CHF with pulmonary vascular congest ion versus bronchitis or asthma.
[2023-08-22 19:12] LABS: ALT 27 U/L (4-49); AST 39 U/L (17-59); African American GFR (CKD) >90 (>60 ml/min/1.73 sqM); Alkaline Phosphatase 97 U/L (38-126); Anion Gap 4 mmol/L; Blood Urea Nitrogen 17 mg/dL (9-20); Calcium 8.9 mg/dL (8.4-10.2); Carbon Dioxide 34 mmol/L (22-30); Chloride 99 mmol/L (98-107); Glucose 85 mg/dL (74-99); INR 1.1 (<1.2); Magnesium 1.9 mg/dL (1.6-2.3); Non-African American GFR(CKD) >90 (>60 ml/min/1.73 sqM); Partial Thromboplastin Time 24.7 sec (22.0-30.0); Potassium 4.4 mmol/L (3.5-5.1); Sodium 137 mmol/L (137-145); Total Bilirubin 0.7 mg/dL (0.2-1.3); Total Protein 6.6 g/dL (6.3-8.2)
[2023-08-22 19:21] LABS: NT-Pro-B-Type Natriuretic Pept 92 pg/mL
[2023-08-22 19:22] LABS: Anisocytosis Slight; Basophils # (A) 0.1 k/uL (0-0.2); Basophils % (A) 1 %; Eosinophils # (A) 0.3 k/uL (0-0.7); Eosinophils % (A) 4 %; HCT 30.1 % (39.0-53.0); HGB 8.8 gm/dL (13.0-17.5); Hypochromasia Marked; Lymphocytes # (A) 1.6 k/uL (1.0-4.8); Lymphocytes % (A) 25 %; MCHC 29.2 g/dL (31.0-37.0); Mean Platelet Volume 7.5; Microcytosis Slight; Monocytes # (A) 0.4 k/uL (0-1.0); Monocytes % (A) 7 %; Neutrophils # (A) 3.7 k/uL (1.3-7.7); Neutrophils % (A) 60 %; Platelet Count 218 k/uL (150-450); RBC 3.81 m/uL (4.30-5.90); RDW 18.2 % (11.5-15.5); WBC 6.1 k/uL (3.8-10.6)
[2023-08-23] MEDS: FUROSEMIDE 10 MG/ML 2 ML VIAL IV ONE (00:05)
[2023-08-23] MEDS: AZITHROMYCIN 500 MG TAB PO STA (00:06)
[2023-08-23] MEDS: methylPREDNISolone SOD SUCCI 125 MG/2 ML VIAL IV STA (00:06)
== END 2023-08-23 00:13 | disposition home or self-care (01) ==
LOC: EC 17:38
DX: J44.9 Chronic obstructive pulmonary disease, unspecified (principal); J40 Bronchitis, not specified as acute or chronic; Z91.010 Allergy to peanuts; Z88.5 Allergy status to narcotic agent; Z88.6 Allergy status to analgesic agent; Z88.8 Allergy status to other drugs, medicaments and biological substances; Z87.891 Personal history of nicotine dependence
CPT/HCPCS: 36415; 71046; 80053; 83735; 83880; 84484; 85025; 85610; 85730; 93005; 96374; 96375; 99285

== ENCOUNTER → 2024-02-03 | Outpatient (CLI) | payer OTHER ==
--- NOTE | 2024-02-06 07:04 | MM ---
Reason for Exam: Clinical finding. Patient History: Sister had breast cancer, age 45. Tissue Density: There are scattered areas of fibroglandular density. Findings: Analyzed By CAD. Bilateral flame-shaped subareolar density, left greater than right. Otherwise, no suspicious microcalcification, significant masses, or other discrete abnormality is seen. Overall Assessment: Benign, BI-RAD 2 Management: Clinical Management of both breasts. For the moderate asymmetric gynecomastia, left greater than right. Correlate for possible causes. Results were given to the patient verbally at the time of exam. [facility], , 02/03/2024 3:26 PM . Electronically signed and approved by: Gurvinder Carreon M.D. Radiologist
== END | disposition home or self-care (01) ==
LOC: RADMAMWWP 14:51
PROVIDERS: ATTEND Family Medicine
DX: N64.4 Mastodynia (principal); Z80.3 Family history of malignant neoplasm of breast; R92.323 Mammographic fibroglandular density, bilateral breasts
CPT/HCPCS: 77062; 77066